=== PATIENT | male | born 1960 | race Caucasian/White ===

== ENCOUNTER 2016-12-07 20:31 | Emergency (ER) | payer MEDICARE, MEDICAID ==
[~2016-12-07] VITALS: Ht 188 cm; Wt 125.0 kg
[~2016-12-07 20:31] MED LIST: CARB200T4 PO; DIVA500T2 PO; FURO-92 PO; LEVO25TA4 PO; LISI-170 PO; POTA20TA91 PO; RANI-276 PO; SIMV40TA3 PO
[2016-12-07] MEDS ORDERED: ONDANSETRON 2MG/ML, 2ML IVPush ONE (21:30)
[2016-12-07] MEDS ORDERED: SODIUM CHLORIDE 0.9% 1,000ML IVBOLUS ONE (21:30)
[2016-12-07] MEDS ORDERED: LORazepam 2 MG/ML, 1ML IVPush ONE (21:30)
[2016-12-07] MEDS ORDERED: SODIUM CHLORIDE FLUSH 10ML SYR IVF ONE (21:30)
[2016-12-07] MEDS ORDERED: LORazepam 2 MG/ML, 1ML ONE (21:50)
[2016-12-07] MEDS ORDERED: ONDANSETRON 2MG/ML, 2ML ONE (21:50)
[2016-12-07 21:51] LABS: ASPARTATE AMINO TRANSFERASE 22 U/L (15-37); BLOOD UREA NITROGEN 21 mg/dL (7-18)
[2016-12-07] MEDS ORDERED: LISI-167 PO (22:24)
[2016-12-07] MEDS ORDERED: LEVO25TA4 PO (22:24)
[2016-12-07] MEDS ORDERED: HYDR-882 PO (22:24)
[2016-12-08 00:53] VITALS: BP 116/70
== END 2016-12-08 00:56 | disposition home or self-care (01) ==
LOC: ED 22:42
DX: G40.309 Generalized idiopathic epilepsy and epileptic syndromes, not intractable, without status epilepticus (principal); I11.0 Hypertensive heart disease with heart failure; I50.9 Heart failure, unspecified; E03.9 Hypothyroidism, unspecified; I25.2 Old myocardial infarction
CPT/HCPCS: 36415; 70450; 72125; 80053; 80164; 80307; 85025; 93005; 96361; 96374; 96375; 99285; J2060; J2405; J7030

== ENCOUNTER 2016-12-08 04:40 | Emergency (ER) | payer MEDICARE, MEDICAID ==
[~2016-12-08] VITALS: Ht 182.9 cm; Wt 112.0 kg
[~2016-12-08 04:40] MED LIST changes: +HYDR-882 PO; +LISI-167 PO
[2016-12-08] MEDS ORDERED: SODIUM CHLORIDE 0.9% 1,000 ML IV ONE (05:33)
[2016-12-08] MEDS ORDERED: SODIUM CHLORIDE FLUSH 10ML SYR IVF ONE (06:00)
[2016-12-08] MEDS ORDERED: SODIUM CHLORIDE 0.9% 1,000ML IVBOLUS ONE (06:00)
[2016-12-08 10:34] VITALS: BP 134/83
== END 2016-12-08 10:37 | disposition home or self-care (01) ==
LOC: ED 06:12
DX: G40.319 Generalized idiopathic epilepsy and epileptic syndromes, intractable, without status epilepticus (principal); M51.36 Other intervertebral disc degeneration, lumbar region
CPT/HCPCS: 36415; 72110; 80156; 93005; 96360; 99285; J7030

== ENCOUNTER 2017-02-10 10:21 | Emergency (ER) | payer MEDICARE, MEDICAID ==
[~2017-02-10] VITALS: Ht 188 cm; Wt 112.0 kg
[~2017-02-10 10:21] MED LIST changes: +LEVO25TA2 PO
[2017-02-10 10:22] VITALS: BP 159/85
== END 2017-02-10 10:59 | disposition home or self-care (01) ==
LOC: ED 10:44
DX: Z76.0 Encounter for issue of repeat prescription (principal); I11.0 Hypertensive heart disease with heart failure; I50.9 Heart failure, unspecified; I25.2 Old myocardial infarction; E03.9 Hypothyroidism, unspecified; E11.9 Type 2 diabetes mellitus without complications; G40.909 Epilepsy, unspecified, not intractable, without status epilepticus
CPT/HCPCS: 99283

== ENCOUNTER 2017-02-21 09:58 | Emergency (ER) | payer MEDICARE, MEDICAID ==
[~2017-02-21] VITALS: Ht 188 cm; Wt 112.8 kg
[2017-02-21 11:31] VITALS: BP 120/78
== END 2017-02-21 12:04 | disposition home or self-care (01) ==
LOC: ED 11:30
DX: R31.0 Gross hematuria (principal); I10 Essential (primary) hypertension; F17.200 Nicotine dependence, unspecified, uncomplicated; E03.9 Hypothyroidism, unspecified
CPT/HCPCS: 81001; 87086; 99284

== ENCOUNTER 2017-04-06 08:31 | Emergency (ER) | payer MEDICARE, MEDICAID ==
[~2017-04-06] VITALS: Ht 188 cm; Wt 109.5 kg
[2017-04-06] MEDS ORDERED: HYDR-3307 PO (08:41)
[2017-04-06] MEDS ORDERED: SODIUM CHLORIDE FLUSH 10ML SYR IVF ONE (09:30)
[2017-04-06 09:33] LABS: HEMATOCRIT 41.4 % (39.2-51.8); HEMOGLOBIN 14.1 g/dL (13.7-18.0); WHITE BLOOD COUNT 6.8 x10^3/uL (3.4-10)
[2017-04-06 11:21] LABS: ASPARTATE AMINO TRANSFERASE 14 U/L (15-37); BLOOD UREA NITROGEN 25 mg/dL (7-18)
[2017-04-06 11:23] LABS: IS PT STATUS REG ER OR PRE ER? YES
[2017-04-06 12:04] LABS: VALPROIC ACID 97.3 mcg/mL (50.0-100.0)
[2017-04-06 13:11] VITALS: BP 141/61
== END 2017-04-06 13:14 | disposition home or self-care (01) ==
LOC: ED 09:06
DX: R07.89 Other chest pain (principal); I11.0 Hypertensive heart disease with heart failure; I50.9 Heart failure, unspecified; G40.909 Epilepsy, unspecified, not intractable, without status epilepticus; I25.2 Old myocardial infarction; F17.210 Nicotine dependence, cigarettes, uncomplicated; Z90.89 Acquired absence of other organs; E03.9 Hypothyroidism, unspecified
CPT/HCPCS: 36415; 71010; 80053; 80156; 80164; 82962; 84484; 85025; 93005; 99285

== ENCOUNTER 2017-06-04 15:24 | Emergency (ER) | payer MEDICARE, MEDICAID ==
[~2017-06-04] VITALS: Ht 188 cm; Wt 106.0 kg
[~2017-06-04 15:24] MED LIST changes: +HYDR-3307 PO
[2017-06-04] MEDS ORDERED: ALBU18HF INH (15:44)
[2017-06-04] MEDS ORDERED: CARB200T PO ×2 (15:44)
[2017-06-04] MEDS ORDERED: CLON2TAB2 PO (15:44)
[2017-06-04] MEDS ORDERED: KETOROLAC 30 MG/1 ML ONE (15:57)
[2017-06-04] MEDS ORDERED: PROCHLORPERAZINE 5 MG/ML, 2ML ONE (15:58)
[2017-06-04] MEDS ORDERED: DIPHENHYDRAMINE 50 MG/ML, 1ML ONE (15:58)
[2017-06-04] MEDS ORDERED: PROCHLORPERAZINE 5 MG/ML, 2ML IVPush ONE (16:00)
[2017-06-04] MEDS ORDERED: KETOROLAC 30 MG/1 ML IVPush ONE (16:00)
[2017-06-04] MEDS ORDERED: DIPHENHYDRAMINE 50 MG/ML, 1ML IVPush ONE (16:00)
[2017-06-04] MEDS ORDERED: SODIUM CHLORIDE 0.9% 1,000ML IVBOLUS ONE (16:00)
[2017-06-04] MEDS ORDERED: SODIUM CHLORIDE FLUSH 10ML SYR IVF ONE (16:00)
[2017-06-04 16:10] VITALS: BP 120/70
== END 2017-06-04 17:31 | disposition home or self-care (01) ==
LOC: ED 16:46
DX: R51 Headache (principal); R11.2 Nausea with vomiting, unspecified; H53.149 Visual discomfort, unspecified; I10 Essential (primary) hypertension; E03.9 Hypothyroidism, unspecified
CPT/HCPCS: 96361; 96374; 96375; 99284; J0780; J1200; J1885; J7030

== ENCOUNTER 2017-06-21 19:27 | Inpatient (IN) | payer MEDICARE, MEDICAID ==
[~2017-06-21] VITALS: Ht 188 cm; Wt 111.7 kg
[~2017-06-21 19:27] MED LIST changes: +ALBU18HF INH; +CARB200T PO; +CLON2TAB2 PO
[2017-06-21 20:56] LABS: HEMATOCRIT 35.8 % (39.2-51.8); HEMOGLOBIN 12.2 g/dL (13.7-18.0); WHITE BLOOD COUNT 5.7 x10^3/uL (3.4-10)
[2017-06-21 21:09] LABS: ASPARTATE AMINO TRANSFERASE 9 U/L (15-37); BLOOD UREA NITROGEN 20 mg/dL (7-18)
[2017-06-21 21:14] LABS: IS PT STATUS REG ER OR PRE ER? YES
[2017-06-21] MEDS ORDERED: FENTANYL PF 100 MCG/2ML IV ONE (21:30)
[2017-06-21] MEDS ORDERED: FENTANYL PF 100 MCG/2ML ONE (21:32)
[2017-06-21] MEDS ORDERED: SODIUM CHLORIDE 0.9% 1,000 ML IV SCH (21:51)
[2017-06-21] MEDS ORDERED: ACETAMINOPHEN 325 MG TABLET PO PRN (22:00)
[2017-06-21] MEDS ORDERED: ZOLPIDEM 5MG TABLET PO PRN (22:00)
[2017-06-21] MEDS ORDERED: hydrALAzine 20 MG/ML, 1ML IVPush PRN (22:00)
[2017-06-21] MEDS: CARBAMAZEPINE 200 MG TABLET PO SCH ×2 (22:00→22:28)
[2017-06-21] MEDS ORDERED: ONDANSETRON 2MG/ML, 2ML IVPush PRN (22:00)
[2017-06-21] MEDS: DIVALPROEX 500 MG TABLET.DR PO SCH (22:27)
[2017-06-21] MEDS: LISINOPRIL MC SCH (23:00)
[2017-06-21 23:55] LABS: IS PT STATUS REG ER OR PRE ER? NO
[2017-06-22] MEDS: SIMVASTATIN 40 MG TABLET PO SCH ×2 (00:32→21:04)
[2017-06-22] MEDS: HYDROcodone/APAP 10/325 MG TABLET PO SCH ×5 (00:33→21:04)
[2017-06-22] MEDS: LISINOPRIL 5 MG TABLET PO SCH ×3 (00:33→21:03)
[2017-06-22 00:38] VITALS: BP 159/89
[2017-06-22 00:54] VITALS: BP 129/80
[2017-06-22] MEDS ORDERED: MAGNESIUM SULFATE PMX 2GM/50ML 50 ML IV ONE (05:30)
[2017-06-22] MEDS: LEVOTHYROXINE 25 MCG TABLET PO SCH (05:54)
[2017-06-22 06:24] LABS: IS PT STATUS REG ER OR PRE ER? NO
[2017-06-22] MEDS: LISINOPRIL MC SCH ×3 (07:00→23:00)
[2017-06-22 07:27] VITALS: BP 126/74
[2017-06-22] MEDS ORDERED: REGADENOSON 0.4 MG/5 ML SYRINGE ONE (08:28)
[2017-06-22] MEDS: FAMOTIDINE 20 MG TABLET PO SCH ×2 (09:00→21:04)
[2017-06-22] MEDS: DIVALPROEX 500 MG TABLET.DR PO SCH ×3 (09:00→21:03)
[2017-06-22] MEDS: CARBAMAZEPINE 200 MG TABLET PO SCH ×3 (09:00→21:03)
[2017-06-22] MEDS: ALBUTEROL HFA 90 MCG/SPRAY INH SCH ×2 (09:00→15:14)
[2017-06-22] MEDS ORDERED: LISINOPRIL 10 MG TABLET PO SCH (09:00)
[2017-06-22 12:53] VITALS: BP 124/80
[2017-06-22] MEDS: METOPROLOL SUCCINATE 25 MG TAB.ER.24H PO SCH (15:13)
[2017-06-22 19:26] VITALS: BP 106/70
[2017-06-22] MEDS: ALBUTEROL SULFATE 2.5 MG/3 ML NPPB SCH (21:00)
[2017-06-23 00:19] VITALS: BP 94/54
[2017-06-23] MEDS: LEVOTHYROXINE 25 MCG TABLET PO SCH (05:38)
[2017-06-23] MEDS: HYDROcodone/APAP 10/325 MG TABLET PO SCH ×2 (05:38→12:00)
[2017-06-23] MEDS: LISINOPRIL 5 MG TABLET PO SCH (05:40)
[2017-06-23] MEDS: METOPROLOL SUCCINATE 25 MG TAB.ER.24H PO SCH (05:41)
[2017-06-23 06:34] VITALS: BP 117/73
[2017-06-23] MEDS: LISINOPRIL MC SCH ×2 (07:00→13:35)
[2017-06-23] MEDS: DIVALPROEX 500 MG TABLET.DR PO SCH (07:58)
[2017-06-23] MEDS: FAMOTIDINE 20 MG TABLET PO SCH (07:59)
[2017-06-23] MEDS: CARBAMAZEPINE 200 MG TABLET PO SCH (07:59)
[2017-06-23] MEDS ORDERED: METO25TA35 PO (08:50)
[2017-06-23] MEDS ORDERED: LISI5TAB7 PO (08:50)
[2017-06-23] MEDS: ALBUTEROL SULFATE 2.5 MG/3 ML NPPB SCH (09:28)
[2017-06-23] MEDS ORDERED: METOPROLOL TARTRATE 25 MG TABLET PO SCH (18:00)
== END 2017-06-23 14:45 | disposition home or self-care (01) | DRG 311 ==
LOC: ED 19:58 → SUATTDRO 21:50 → EDIP 21:51 → 5SO 22:44
PROVIDERS: ADMIT Hospitalist; ATTEND Hospitalist
DX: I24.9 Acute ischemic heart disease, unspecified (principal); I11.0 Hypertensive heart disease with heart failure; I50.9 Heart failure, unspecified; I25.10 Atherosclerotic heart disease of native coronary artery without angina pectoris; R07.89 Other chest pain; E03.9 Hypothyroidism, unspecified; E66.9 Obesity, unspecified; E78.5 Hyperlipidemia, unspecified; J44.9 Chronic obstructive pulmonary disease, unspecified; K21.9 Gastro-esophageal reflux disease without esophagitis; G40.909 Epilepsy, unspecified, not intractable, without status epilepticus; G47.33 Obstructive sleep apnea (adult) (pediatric); Z96.651 Presence of right artificial knee joint; F17.210 Nicotine dependence, cigarettes, uncomplicated; Z68.31 Body mass index [BMI] 31.0-31.9, adult; I25.2 Old myocardial infarction; Z79.899 Other long term (current) drug therapy; Z82.3 Family history of stroke; Z82.49 Family history of ischemic heart disease and other diseases of the circulatory system; Z87.820 Personal history of traumatic brain injury; Z88.6 Allergy status to analgesic agent; Z88.5 Allergy status to narcotic agent; Z88.0 Allergy status to penicillin; Z88.8 Allergy status to other drugs, medicaments and biological substances; Z91.018 Allergy to other foods
CPT/HCPCS: 36415; 70450; 71010; 78452; 80053; 80061; 80164; 84484; 85025; 85610; 93005; 93017; 93306; 94640; 96374; J2785; J3010; J7613; A9502; C9898; J3475; J7030

== ENCOUNTER 2017-08-10 08:36 | Emergency (ER) | payer MEDICARE, MEDICAID ==
[~2017-08-10] VITALS: Ht 188 cm; Wt 102.0 kg
[~2017-08-10 08:36] MED LIST changes: +LISI5TAB7 PO; +METO25TA35 PO
[2017-08-10 09:25] VITALS: BP 154/76
[2017-08-10] MEDS ORDERED: HYDROcodone/APAP 5/325 TABLET PO ONE (10:00)
== END 2017-08-10 10:50 | disposition home or self-care (01) ==
LOC: ED 08:59
DX: G89.11 Acute pain due to trauma (principal); M25.511 Pain in right shoulder; M54.5 Low back pain; R51 Headache; W01.0XXA Fall on same level from slipping, tripping and stumbling without subsequent striking against object, initial encounter; Y93.89 Activity, other specified; Y92.231 Patient bathroom in hospital as the place of occurrence of the external cause; Y99.8 Other external cause status
CPT/HCPCS: 71045; 72110; 99284

== ENCOUNTER 2017-10-10 02:06 | Emergency (ER) | payer MEDICARE, MEDICAID ==
[~2017-10-10] VITALS: Ht 167.6 cm; Wt 102.9 kg
[2017-10-10 02:39] LABS: BASOPHILS # (AUTO) 0.02 x10^3/uL (0-0.1); BASOPHILS % (AUTO) 1 % (0-1); EOSINOPHILS # (AUTO) 0.15 x10^3/uL (0-0.4); EOSINOPHILS % (AUTO) 3 % (1-7); LYMPHOCYTES % (AUTO) 42 % (22-44); MD NO; MEAN CORPUSCULAR HEMOGLOBIN 33.1 pg (27.5-34.5); MEAN CORPUSCULAR VOLUME 97.4 fL (81-97); MEAN PLATELET VOLUME 6.6 fL (7.4-10.4); MONOCYTES # (AUTO) 0.52 x10^3/uL (0.2-0.8); MONOCYTES % (AUTO) 10 % (2-9); NEUTROPHILS % (AUTO) 45 % (42-75); PLATELET COUNT 193 x10^3/uL (130-400); RED BLOOD COUNT 4.17 x10^6/uL (4.38-5.82); RED CELL DISTRIBUTION WIDTH 13.8 % (9.4-14.8)
[2017-10-10 02:49] LABS: INTERNATIONAL NORMALIZED RATIO 0.98 (0.93-1.1); PROTHROMBIN TIME 10.2 Seconds (9.6-11.5)
[2017-10-10 02:51] LABS: ANION GAP 8 mmol/L (5-15); CALCIUM 8.7 mg/dL (8.5-10.1); CHLORIDE 106 mmol/L (98-107); CREATININE 0.81 mg/dL (0.7-1.3)
[2017-10-10 02:55] LABS: TROPONIN I < 0.015 ng/mL (0.000-0.045)
[2017-10-10 03:25] VITALS: BP 125/78
[2017-10-10] MEDS ORDERED: CARBAMAZEPINE 200 MG TABLET PO ONE (03:30)
[2017-10-10] MEDS ORDERED: DIVALPROEX 500 MG TABLET.DR PO ONE (03:30)
== END 2017-10-10 04:44 | disposition home or self-care (01) ==
LOC: ED 04:25
DX: R07.89 Other chest pain (principal); E03.9 Hypothyroidism, unspecified; E78.5 Hyperlipidemia, unspecified; G40.909 Epilepsy, unspecified, not intractable, without status epilepticus; I25.2 Old myocardial infarction
CPT/HCPCS: 36415; 71045; 80048; 80156; 80164; 82040; 84484; 85025; 85610; 85730; 93005; 99285

== ENCOUNTER 2017-10-17 13:12 | Inpatient (IN) | payer MEDICARE, MEDICAID ==
[~2017-10-17] VITALS: Ht 188 cm; Wt 107.2 kg
[2017-10-17] MEDS ORDERED: PLEASE ENTER HEIGHT AND WEIGHT MC SCH (13:42)
[2017-10-17] MEDS ORDERED: SIMV40TA3 PO (13:58)
[2017-10-17] MEDS ORDERED: SIMVASTATIN (14:00)
[2017-10-17] MEDS ORDERED: SODIUM CHLORIDE 0.9% 1,000ML IVBOLUS ONE ×2 (14:00→17:30)
[2017-10-17] MEDS ORDERED: RANITIDINE (14:00)
[2017-10-17] MEDS ORDERED: LEVO50TA5 PO (14:00)
[2017-10-17] MEDS ORDERED: ATEN50TA41 PO (14:00)
[2017-10-17 15:21] LABS: BASOPHILS # (AUTO) 0.03 x10^3/uL (0-0.1); BASOPHILS % (AUTO) 0 % (0-1); EOSINOPHILS # (AUTO) 0.11 x10^3/uL (0-0.4); EOSINOPHILS % (AUTO) 1 % (1-7); LYMPHOCYTES # (AUTO) 1.52 x10^3/uL (1-3.4); LYMPHOCYTES % (AUTO) 18 % (22-44); MD NO; MEAN CORPUSCULAR HEMOGLOBIN 33.4 pg (27.5-34.5); MEAN CORPUSCULAR HGB CONC 33.8 g/dL (33.2-36.2); MEAN CORPUSCULAR VOLUME 98.7 fL (81-97); MEAN PLATELET VOLUME 8.9 fL (7.4-10.4); MONOCYTES # (AUTO) 0.06 x10^3/uL (0.2-0.8); MONOCYTES % (AUTO) 1 % (2-9); NEUTROPHILS # (AUTO) 6.64 x10^3/uL (1.8-6.8); NEUTROPHILS % (AUTO) 79 % (42-75); PLATELET COUNT 130 x10^3/uL (130-400); RED BLOOD COUNT 3.87 x10^6/uL (4.38-5.82); RED CELL DISTRIBUTION WIDTH 13.6 % (9.4-14.8)
[2017-10-17 15:32] LABS: ALANINE AMINOTRANSFERASE 15 U/L (12-78); ANION GAP 7 mmol/L (5-15); CALCIUM 8.3 mg/dL (8.5-10.1); CHLORIDE 109 mmol/L (98-107)
[2017-10-17 15:35] LABS: ALKALINE PHOSPHATASE 43 U/L (45-117); BILIRUBIN,TOTAL 0.3 mg/dL (0.2-1.0); CREATININE 0.93 mg/dL (0.7-1.3); TROPONIN I < 0.015 ng/mL (0.000-0.045)
[2017-10-17 15:42] LABS: ACETAMINOPHEN < 2 mcg/mL (10-30)
[2017-10-17] MEDS ORDERED: LIDOCAINE-MPF 1%, 5ML ONE (15:42)
[2017-10-17] MEDS ORDERED: DIPH,PERTUSS(ACELL),TET VAC/PF 0.5 ML IM-VACC ONE ×2 (16:00→16:51)
[2017-10-17] MEDS ORDERED: ONDANSETRON 2MG/ML, 2ML IVPush PRN (17:30)
[2017-10-17] MEDS ORDERED: SODIUM CHLORIDE 0.9% 1,000 ML IV SCH (17:43)
[2017-10-17] MEDS ORDERED: hydrALAzine 20 MG/ML, 1ML IVPush PRN (18:00)
[2017-10-17] MEDS ORDERED: HYDROcodone/APAP 5/325 TABLET PO PRN (18:00)
[2017-10-17] MEDS ORDERED: SODIUM CHLORIDE 0.9% 1,000 ML IV ONE (18:00)
[2017-10-17] MEDS ORDERED: ONDANSETRON ODT 4 MG PO PRN (18:00)
[2017-10-17] MEDS ORDERED: BACITRACIN ZINC OINT 500U/GM, 0.9 GM ONE (18:14)
[2017-10-17 20:07] VITALS: BP 113/81
[2017-10-17] MEDS ORDERED: CARBAMAZEPINE 200 MG TABLET PO SCH (21:00)
[2017-10-17] MEDS: NICOTINE 7 MG/24 HR PATCH.TD24 TD SCH (22:06)
[2017-10-17] MEDS: CARBAMAZEPINE 200 MG TABLET PO SCH (23:03)
[2017-10-18 01:25] VITALS: BP 90/57
[2017-10-18 04:55] LABS: CULTURE INDICATED? YES; MICROSCOPIC INDICATED
[2017-10-18 05:24] LABS: AMPHETAMINE SCREEN, URINE Positive (Negative); BARBITURATE SCREEN, URINE Negative (Negative); BENZODIAZEPINE SCREEN, URINE Negative (Negative); CANNABINOID SCREEN, URINE Positive (Negative); COCAINE SCREEN, URINE Negative (Negative); METHADONE SCREEN, URINE Negative (Negative)
[2017-10-18 05:25] LABS: OPIATE SCREEN, URINE Negative (Negative)
[2017-10-18 05:35] LABS: % IRON SATURATION 27 % (20-55); ALANINE AMINOTRANSFERASE 12 U/L (12-78); ALBUMIN 2.4 g/dL (3.4-5.0); ANION GAP 5 mmol/L (5-15); CALCIUM 8.1 mg/dL (8.5-10.1); CHLORIDE 113 mmol/L (98-107); CREATININE 0.78 mg/dL (0.7-1.3); IRON LEVEL 60 mcg/dL (65-175); TOTAL IRON BINDING CAPACITY 221 mcg/dL (250-450)
[2017-10-18 05:38] LABS: ALKALINE PHOSPHATASE 35 U/L (45-117); BILIRUBIN,TOTAL 0.2 mg/dL (0.2-1.0); MEAN CORPUSCULAR HGB CONC 33.9 g/dL (33.2-36.2); MEAN CORPUSCULAR VOLUME 97.4 fL (81-97); RED BLOOD COUNT 3.36 x10^6/uL (4.38-5.82); RED CELL DISTRIBUTION WIDTH 13.6 % (9.4-14.8); TOTAL PROTEIN 5.7 g/dL (6.4-8.2)
[2017-10-18 06:01] LABS: BASOPHILS # (AUTO) 0.02 x10^3/uL (0-0.1); BASOPHILS % (AUTO) 0 % (0-1); EOSINOPHILS # (AUTO) 0.14 x10^3/uL (0-0.4); EOSINOPHILS % (AUTO) 3 % (1-7); LYMPHOCYTES # (AUTO) 1.94 x10^3/uL (1-3.4); LYMPHOCYTES % (AUTO) 38 % (22-44); MD SCAN; MEAN PLATELET VOLUME 9.2 fL (7.4-10.4); MONOCYTES # (AUTO) 0.28 x10^3/uL (0.2-0.8); MONOCYTES % (AUTO) 5 % (2-9); NEUTROPHILS # (AUTO) 2.73 x10^3/uL (1.8-6.8); NEUTROPHILS % (AUTO) 53 % (42-75); PLATELET COUNT 89 x10^3/uL (130-400)
[2017-10-18 07:14] VITALS: BP 107/64
[2017-10-18 08:15] VITALS: BP 100/63
[2017-10-18] MEDS: LEVOTHYROXINE 50 MCG TABLET PO SCH (08:38)
[2017-10-18] MEDS: ACETAMINOPHEN 325 MG TABLET PO PRN (08:39)
[2017-10-18 12:27] VITALS: BP 106/66
[2017-10-18] MEDS ORDERED: CEFTRIAXONE PMX 2GM/50ML 50 ML IV SCH (12:30)
[2017-10-18 12:55] VITALS: BP 125/67
[2017-10-18] MEDS: CEFTRIAXONE 2 GM in DEXTROSE 5% 100 ML IV SCH (14:07)
[2017-10-18] MEDS: NICOTINE 7 MG/24 HR PATCH.TD24 TD SCH (17:58)
[2017-10-18] MEDS ORDERED: SODIUM CHLORIDE 0.9% 1,000 ML IV SCH (18:00)
[2017-10-18] MEDS: SODIUM CHLORIDE 0.9% 1,000 ML IV SCH ×2 (18:03→23:40)
[2017-10-18 18:27] VITALS: BP 113/70
[2017-10-18] MEDS: CARBAMAZEPINE 200 MG TABLET PO SCH (20:20)
[2017-10-18] MEDS ORDERED: DIVALPROEX 500 MG TABLET.DR PO SCH (21:00)
[2017-10-19 00:44] VITALS: BP 94/60
[2017-10-19 05:14] LABS: MEAN CORPUSCULAR HEMOGLOBIN 33.4 pg (27.5-34.5); MEAN CORPUSCULAR HGB CONC 34.2 g/dL (33.2-36.2); MEAN CORPUSCULAR VOLUME 97.6 fL (81-97); RED BLOOD COUNT 3.13 x10^6/uL (4.38-5.82); RED CELL DISTRIBUTION WIDTH 13.9 % (9.4-14.8)
[2017-10-19 05:18] LABS: ANION GAP 5 mmol/L (5-15); CHLORIDE 110 mmol/L (98-107)
[2017-10-19 05:22] LABS: CREATININE 0.62 mg/dL (0.7-1.3)
[2017-10-19 06:42] LABS: BASOPHILS # (AUTO) 0.06 x10^3/uL (0-0.1); BASOPHILS % (AUTO) 1 % (0-1); EOSINOPHILS # (AUTO) 0.17 x10^3/uL (0-0.4); EOSINOPHILS % (AUTO) 3 % (1-7); LYMPHOCYTES # (AUTO) 1.62 x10^3/uL (1-3.4); LYMPHOCYTES % (AUTO) 33 % (22-44); MD SCAN; MEAN PLATELET VOLUME 9.5 fL (7.4-10.4); MONOCYTES # (AUTO) 0.32 x10^3/uL (0.2-0.8); MONOCYTES % (AUTO) 6 % (2-9); NEUTROPHILS # (AUTO) 2.81 x10^3/uL (1.8-6.8); NEUTROPHILS % (AUTO) 56 % (42-75); PLATELET COUNT 72 x10^3/uL (130-400)
[2017-10-19 07:40] VITALS: BP 105/67
[2017-10-19] MEDS: LEVOTHYROXINE 50 MCG TABLET PO SCH (08:55)
[2017-10-19] MEDS: SODIUM CHLORIDE 0.9% 1,000 ML IV SCH ×2 (09:49→21:57)
[2017-10-19] MEDS: DIVALPROEX 250 MG TABLET.DR PO SCH ×2 (10:44→21:57)
[2017-10-19] MEDS: CEFTRIAXONE 2 GM in DEXTROSE 5% 100 ML IV SCH (11:49)
[2017-10-19 13:03] VITALS: BP 118/78
[2017-10-19 15:18] VITALS: BP_SYST 104; BP_SYST 114; BP_SYST 124; BP_DIAS 64; BP_DIAS 67; BP_DIAS 76
[2017-10-19] MEDS: NICOTINE 7 MG/24 HR PATCH.TD24 TD SCH (16:56)
[2017-10-19 21:19] VITALS: BP 113/72
[2017-10-19] MEDS: CARBAMAZEPINE 200 MG TABLET PO SCH (21:57)
[2017-10-20 01:21] VITALS: BP 100/68
[2017-10-20] MEDS: LEVOTHYROXINE 50 MCG TABLET PO SCH (04:45)
[2017-10-20 06:20] VITALS: BP 103/67
[2017-10-20 06:25] VITALS: BP 106/70
[2017-10-20 06:30] VITALS: BP 122/81
[2017-10-20] MEDS: DIVALPROEX 250 MG TABLET.DR PO SCH (07:43)
[2017-10-20] MEDS: SODIUM CHLORIDE 0.9% 1,000 ML IV SCH (07:43)
[2017-10-20] MEDS: CEFTRIAXONE 2 GM in DEXTROSE 5% 100 ML IV SCH (12:15)
[2017-10-20 13:48] VITALS: BP 102/67
[2017-10-20] MEDS ORDERED: MAGNESIUM SULFATE PMX 4GM/100M 100 ML IV ONE (15:00)
[2017-10-20] MEDS ORDERED: POTASSIUM PHOSPHATE 44 MEQ in SODIUM CHLORIDE 0.9% 500 ML IV ONE (15:00)
[2017-10-20] MEDS: NICOTINE 7 MG/24 HR PATCH.TD24 TD SCH (18:00)
[2017-10-20 19:35] VITALS: BP 98/65
[2017-10-20] MEDS: DIVALPROEX 500 MG TABLET.DR PO SCH (20:29)
[2017-10-20] MEDS: CARBAMAZEPINE 200 MG TABLET PO SCH (20:29)
[2017-10-21 00:09] VITALS: BP 101/65
[2017-10-21] MEDS: SODIUM CHLORIDE 0.9% 1,000 ML IV SCH ×3 (04:00→22:35)
[2017-10-21] MEDS: LEVOTHYROXINE 50 MCG TABLET PO SCH (04:01)
[2017-10-21 05:12] LABS: ANION GAP 6 mmol/L (5-15); CALCIUM 8.1 mg/dL (8.5-10.1); CHLORIDE 108 mmol/L (98-107); CREATININE 0.58 mg/dL (0.7-1.3)
[2017-10-21] MEDS: ACETAMINOPHEN 325 MG TABLET PO PRN ×2 (05:24→17:27)
[2017-10-21 07:25] VITALS: BP 94/61
[2017-10-21] MEDS: DIVALPROEX 500 MG TABLET.DR PO SCH (08:13)
[2017-10-21] MEDS: CEFTRIAXONE 2 GM in DEXTROSE 5% 100 ML IV SCH (12:32)
[2017-10-21] MEDS ORDERED: CEFTRIAXONE 2 GM in DEXTROSE 5% 50 ML IV SCH (13:00)
[2017-10-21 14:10] VITALS: BP 96/57
[2017-10-21] MEDS: NICOTINE 7 MG/24 HR PATCH.TD24 TD SCH (17:06)
[2017-10-21 19:28] VITALS: BP 108/65
[2017-10-21] MEDS: CARBAMAZEPINE 200 MG TABLET PO SCH (19:37)
[2017-10-21] MEDS: DIVALPROEX 250 MG TABLET.DR PO SCH (19:38)
[2017-10-22 03:59] VITALS: BP 104/67
[2017-10-22] MEDS: LEVOTHYROXINE 50 MCG TABLET PO SCH (05:24)
[2017-10-22 06:45] VITALS: BP_SYST 102; BP_SYST 109; BP_DIAS 67; BP_DIAS 79
[2017-10-22 06:46] VITALS: BP 117/78
[2017-10-22 06:47] VITALS: BP 129/81
[2017-10-22] MEDS: DIVALPROEX 250 MG TABLET.DR PO SCH (08:13)
[2017-10-22] MEDS: SODIUM CHLORIDE 0.9% 1,000 ML IV SCH (08:13)
[2017-10-22] MEDS ORDERED: DIVA250T6 PO (09:12)
[2017-10-22] MEDS ORDERED: DIVA500T2 PO (09:12)
[2017-10-22] MEDS ORDERED: NICO-485 TD (09:12)
== END 2017-10-22 12:56 | disposition home or self-care (01) | DRG 308 ==
LOC: ED 15:11 → EDIP 17:02 → 5SO 20:11 → DCLOUNGE 10-22 12:45
PROVIDERS: ADMIT Hospitalist; ATTEND Internal Medicine
PROC: 0HQFXZZ Repair Right Hand Skin, External Approach (ICD-10-PCS; principal; 2017-10-17)
DX: R00.1 Bradycardia, unspecified (principal); E43 Unspecified severe protein-calorie malnutrition; G93.41 Metabolic encephalopathy; I11.0 Hypertensive heart disease with heart failure; I50.32 Chronic diastolic (congestive) heart failure; N39.0 Urinary tract infection, site not specified; I95.1 Orthostatic hypotension; W05.0XXA Fall from non-moving wheelchair, initial encounter; E83.42 Hypomagnesemia; Z68.28 Body mass index [BMI] 28.0-28.9, adult; D50.9 Iron deficiency anemia, unspecified; E03.9 Hypothyroidism, unspecified; E78.5 Hyperlipidemia, unspecified; G40.909 Epilepsy, unspecified, not intractable, without status epilepticus; S00.81XA Abrasion of other part of head, initial encounter; S50.811A Abrasion of right forearm, initial encounter; S61.011A Laceration without foreign body of right thumb without damage to nail, initial encounter; S51.811A Laceration without foreign body of right forearm, initial encounter; T42.6X5A Adverse effect of other antiepileptic and sedative-hypnotic drugs, initial encounter; Z87.820 Personal history of traumatic brain injury; Z87.891 Personal history of nicotine dependence; Z68.30 Body mass index [BMI] 30.0-30.9, adult
CPT/HCPCS: 36415; 70450; 71045; 80048; 80053; 80164; 80307; 80329; 81001; 83540; 83550; 83735; 84100; 84443; 84484; 85025; 87040; 87086; 90471; 90715; 93005; 93880; 96360; 96361; Q0162; G0480; J3475; J7030; J7040

== ENCOUNTER 2017-10-28 04:12 | Emergency (ER) | payer MEDICARE, MEDICAID ==
[~2017-10-28] VITALS: Ht 188 cm; Wt 89.1 kg
[~2017-10-28 04:12] MED LIST changes: +ATEN50TA41 PO; +DIVA250T6 PO; +LEVO50TA5 PO; +NICO-485 TD; +RANITIDINE; +SIMVASTATIN
[2017-10-28 05:14] LABS: BASOPHILS # (AUTO) 0.03 x10^3/uL (0-0.1); BASOPHILS % (AUTO) 1 % (0-1); EOSINOPHILS # (AUTO) 0.16 x10^3/uL (0-0.4); EOSINOPHILS % (AUTO) 4 % (1-7); LYMPHOCYTES # (AUTO) 1.83 x10^3/uL (1-3.4); LYMPHOCYTES % (AUTO) 40 % (22-44); MD NO; MEAN CORPUSCULAR HEMOGLOBIN 32.9 pg (27.5-34.5); MEAN CORPUSCULAR HGB CONC 33.6 g/dL (33.2-36.2); MEAN CORPUSCULAR VOLUME 98.1 fL (81-97); MEAN PLATELET VOLUME 8.9 fL (7.4-10.4); MONOCYTES # (AUTO) 0.37 x10^3/uL (0.2-0.8); MONOCYTES % (AUTO) 8 % (2-9); NEUTROPHILS # (AUTO) 2.16 x10^3/uL (1.8-6.8); NEUTROPHILS % (AUTO) 48 % (42-75); PLATELET COUNT 120 x10^3/uL (130-400); RED BLOOD COUNT 3.34 x10^6/uL (4.38-5.82); RED CELL DISTRIBUTION WIDTH 14.6 % (9.4-14.8)
[2017-10-28 05:24] LABS: ALANINE AMINOTRANSFERASE 17 U/L (12-78); ALBUMIN 2.8 g/dL (3.4-5.0); ANION GAP 8 mmol/L (5-15); CALCIUM 8.5 mg/dL (8.5-10.1); CHLORIDE 113 mmol/L (98-107); CREATININE 0.62 mg/dL (0.7-1.3)
[2017-10-28 05:26] LABS: ALKALINE PHOSPHATASE 42 U/L (45-117); BILIRUBIN,TOTAL 0.3 mg/dL (0.2-1.0); TOTAL PROTEIN 6.7 g/dL (6.4-8.2)
[2017-10-28] MEDS ORDERED: SODIUM CHLORIDE 0.9% 1,000ML IVBOLUS ONE (05:30)
[2017-10-28 06:31] LABS: MICROSCOPIC INDICATED
[2017-10-28 06:32] LABS: CULTURE INDICATED? YES
[2017-10-28 06:36] VITALS: BP 133/77
== END 2017-10-28 07:16 | disposition home or self-care (01) ==
LOC: ED 04:17
DX: G40.909 Epilepsy, unspecified, not intractable, without status epilepticus (principal); N30.00 Acute cystitis without hematuria; E03.9 Hypothyroidism, unspecified; E78.5 Hyperlipidemia, unspecified; I48.91 Unspecified atrial fibrillation
CPT/HCPCS: 36415; 74176; 80053; 80164; 80307; 81001; 85025; 87086; 93005; 99285

== ENCOUNTER 2018-06-02 12:17 | Emergency (ER) | payer MEDICARE, MEDICAID ==
[~2018-06-02] VITALS: Ht 188 cm; Wt 105.0 kg
[~2018-06-02 12:17] MED LIST changes: -CLON2TAB2 PO; +CLON2TAB9 PO; +DIVA-59 PO; -DIVA250T6 PO; +HYDR-3653 PO; -HYDR-882 PO
[2018-06-02] MEDS ORDERED: CARBAMAZEPINE 200 MG TABLET PO ONE (13:00)
[2018-06-02] MEDS ORDERED: CARBAMAZEPINE 200 MG TABLET ONE (13:10)
[2018-06-02 14:09] VITALS: BP 165/86
== END 2018-06-02 14:39 | disposition home or self-care (01) ==
LOC: ED 14:30
DX: G40.319 Generalized idiopathic epilepsy and epileptic syndromes, intractable, without status epilepticus (principal); Z76.0 Encounter for issue of repeat prescription; E78.5 Hyperlipidemia, unspecified; I11.9 Hypertensive heart disease without heart failure; I50.9 Heart failure, unspecified; E03.9 Hypothyroidism, unspecified; Z90.89 Acquired absence of other organs
CPT/HCPCS: 99283

== ENCOUNTER 2018-07-24 11:34 | Emergency (ER) | payer OTHER, MEDICAID ==
[~2018-07-24] VITALS: Ht 182.9 cm; Wt 97.5 kg
[~2018-07-24 11:34] MED LIST changes: -RANI-276 PO; +RANI-448 PO
--- NOTE | 2018-07-24 11:47 | NUR ---
PT. ARRIVES BY [facility] WITH C/O SEIZURE ACTIVITY WHILE AT HIS [facility] TODAY. UPON ARRIVAL PT. IS A & O X 4. PUPILS ARE DANIELA. PT. HAS THE CP MONITOR IN PLACE. SEIZURE PADS ARE IN PLACE ON THE GURNEY. PT.'S HOB IS ELEVATED GREATER THAN 30 DEGREES. PT.'S SIDERAILS REMAIN UP X 2. PT.'S RESP. ARE EUPNEIC. PT. STATES HE HAS NOT TAKEN HIS SEIZURE MEDICATION FOR 2 DAYS SECONDARY TO RUNNING OUT OF THEM. PT. IS INCONTINENT OF URINE. PT. HAS HAD MULTIPLE BACK AND SPINE INJURIES. PT. IS UNABLE TO AMBULATE. REPORT WAS GIVEN TO CLAIR Bowens RN.
[2018-07-24] MEDS ORDERED: OXCA600T10 PO (11:55)
[2018-07-24] MEDS ORDERED: ALBU18HF INH (11:55)
[2018-07-24] MEDS ORDERED: AZEL6DRO2 EACHEYE (11:55)
[2018-07-24] MEDS ORDERED: SIMV10TA3 PO (11:55)
[2018-07-24] MEDS ORDERED: BUDE10.2 INH (11:55)
[2018-07-24] MEDS ORDERED: FLUT16SP NAS (11:55)
[2018-07-24] MEDS ORDERED: QUET25TA PO (11:55)
[2018-07-24] MEDS ORDERED: LEVO25TA4 PO (11:55)
[2018-07-24] MEDS ORDERED: ESCI10TA PO (11:55)
[2018-07-24] MEDS ORDERED: HYDR25CA94 PO (11:55)
--- NOTE | 2018-07-24 12:01 | NUR ---
lunch rn: med reccompleted, pt on all monitors. piv to be established.
[2018-07-24] MEDS ORDERED: LORazepam 1MG TABLET ONE (12:19)
--- NOTE | 2018-07-24 12:28 | NUR ---
Provided pt medication per EMAR. Sent yellow slip to pharmacy for other meds on EMAR. Pt connected to all monitors. NADN. All seizure precautions in place. No needs requested at this time. Pt speaking in complete sentences. Pt able to swallow saliva and drink water with out complications.
[2018-07-24] MEDS ORDERED: OXCARBAZEPINE 150 MG TABLET PO ONE (12:30)
[2018-07-24] MEDS ORDERED: LORazepam 1MG TABLET PO ONE (12:30)
--- NOTE | 2018-07-24 12:49 | NUR ---
Pt states, "my neck is hurting really bad, can the doctor give me something?"
--- NOTE | 2018-07-24 13:01 | NUR ---
Pt repositioned. Pt states, "pain is at an 8 right now."
--- NOTE | 2018-07-24 13:35 | NUR ---
Patient given discharge instructions and they have confirmed that they understand the instructions. Patient moves self from gurney to personal wheelchair. Pt wheeled self to discharge desk. Pt left with all personal belongings, discharge paperwork, and prescription.
[2018-07-24 13:36] VITALS: BP 136/75
== END 2018-07-24 13:38 | disposition home or self-care (01) ==
LOC: ED 13:00
DX: G40.419 Other generalized epilepsy and epileptic syndromes, intractable, without status epilepticus (principal)
CPT/HCPCS: 99283

== ENCOUNTER 2018-12-22 20:59 | Observation (INO) | payer OTHER, MEDICAID ==
[~2018-12-22] VITALS: Ht 182.9 cm; Wt 101.4 kg
[~2018-12-22 20:59] MED LIST changes: +AZEL6DRO2 EACHEYE; +BUDE10.2 INH; +ESCI10TA PO; +FLUT16SP24 NAS; +HYDR25CA94 PO; +OXCA600T10 PO; +QUET25TA7 PO; +SIMV10TA3 PO
--- NOTE | 2018-12-22 21:11 | NUR ---
CODE NEURO PREALERT. ARRIVAL TIME 2057. PER EMS, L SIDED WEAKNESS ONSET 2029. FSBS IN FIELD, 101. PT EVALUATED BY ERP UPON ARRIVAL AND TAKEN DIRECTLY TO CT.
[2018-12-22 21:31] LABS: BASOPHILS # (AUTO) 0.03 x10^3/uL (0-0.1); BASOPHILS % (AUTO) 1 % (0-1); EOSINOPHILS # (AUTO) 0.33 x10^3/uL (0-0.4); EOSINOPHILS % (AUTO) 5 % (1-7); LYMPHOCYTES # (AUTO) 1.38 x10^3/uL (1-3.4); LYMPHOCYTES % (AUTO) 20 % (22-44); MD NO; MEAN CORPUSCULAR HEMOGLOBIN 31.1 pg (27.5-34.5); MEAN CORPUSCULAR HGB CONC 32.9 g/dL (33.2-36.2); MEAN CORPUSCULAR VOLUME 94.5 fL (81-97); MEAN PLATELET VOLUME 7.8 fL (7.4-10.4); MONOCYTES # (AUTO) 0.68 x10^3/uL (0.2-0.8); MONOCYTES % (AUTO) 10 % (2-9); NEUTROPHILS # (AUTO) 4.57 x10^3/uL (1.8-6.8); NEUTROPHILS % (AUTO) 65 % (42-75); PLATELET COUNT 185 x10^3/uL (130-400); RED BLOOD COUNT 4.14 x10^6/uL (4.38-5.82); RED CELL DISTRIBUTION WIDTH 12.5 % (9.4-14.8)
--- NOTE | 2018-12-22 21:34 | NUR ---
UPON ARRIVAL, PT UNABLE TO MOVE LUE OR LLE. PT ANSWERING QUESTION APPROPRIATELY, SPEECH CLEAR AND MANTAINING AIRWAY. 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 PT USING L HAND TO TYPE ON CELL PHONE AT THIS TIME AND IS ABLE TO HOLD L ARM UP AGAINST GRAVITY FOR ADJUSTMENT OF BP CUFF. COMPUTER IN PLACE FOR NEURO ASSESSMENT. PT UPDATED TO POC (NEURO ASSESSMENT/RESULTS/RECHECK/DISPO) AND DEMONSTRATES UNDERSTANDING.
--- NOTE | 2018-12-22 21:39 | NUR ---
NEURO CONSULT INITIATED.
[2018-12-22 21:42] LABS: INTERNATIONAL NORMALIZED RATIO 1.12 (0.93-1.1); PROTHROMBIN TIME 11.7 Seconds (9.6-11.5)
[2018-12-22 21:44] LABS: ALBUMIN 2.7 g/dL (3.4-5.0); ANION GAP 3 mmol/L (5-15); CALCIUM 8.2 mg/dL (8.5-10.1); CHLORIDE 105 mmol/L (98-107)
--- NOTE | 2018-12-22 21:47 | NUR ---
DOA COLLECTED AND WALKED TO LAB
[2018-12-22 21:50] LABS: ALANINE AMINOTRANSFERASE 20 U/L (12-78); ALKALINE PHOSPHATASE 73 U/L (45-117); BILIRUBIN,TOTAL 0.2 mg/dL (0.2-1.0); CREATININE 0.78 mg/dL (0.7-1.3); TOTAL PROTEIN 6.2 g/dL (6.4-8.2); TROPONIN I < 0.015 ng/mL (0.000-0.045)
[2018-12-22] MEDS ORDERED: OMNIPAQUE 350 MG/ML, 100ML BOTTLE ONE (22:00)
[2018-12-22 22:08] LABS: AMPHETAMINE SCREEN, URINE Positive (Negative); BARBITURATE SCREEN, URINE Negative (Negative); BENZODIAZEPINE SCREEN, URINE Negative (Negative); CANNABINOID SCREEN, URINE Positive (Negative); COCAINE SCREEN, URINE Negative (Negative); METHADONE SCREEN, URINE Negative (Negative); OPIATE SCREEN, URINE Negative (Negative)
--- NOTE | 2018-12-22 22:33 | NUR ---
PT RESTING COMFORTABLY IN GURNEY, EVEN/REGULAR RESPIRATIONS. PT EASILY ARROUSABLE TO VOICE AND ABLE TO ANSWER QUESTIONS REGARDING HOME MEDICATIONS.
--- NOTE | 2018-12-22 22:40 | NUR ---
REPORT CALLED TO TERENCE LANDAVERDE
[2018-12-22 23:10] VITALS: BP 128/79
[2018-12-23] MEDS ORDERED: ONDANSETRON 2MG/ML, 2ML IVPush PRN (00:30)
[2018-12-23] MEDS ORDERED: POLYETHYLENE GLYCOL 17 GM PACKET PO PRN (00:30)
[2018-12-23] MEDS ORDERED: ACETAMINOPHEN 325 MG TABLET PO PRN (00:30)
[2018-12-23] MEDS ORDERED: HYDROXYZINE PAMOATE 25MG CAP PO PRN (00:30)
[2018-12-23] MEDS ORDERED: BISACODYL 10 MG SUPP PR PRN (00:30)
[2018-12-23] MEDS ORDERED: LABETALOL 5MG/ML, 20ML IVPush PRN (00:30)
[2018-12-23 01:03] VITALS: BP 131/77
[2018-12-23 01:14] LABS: HEMOGLOBIN A1C 5.5 % (4.2-6.3)
[2018-12-23] MEDS: ATORVASTATIN 80 MG TABLET PO SCH ×2 (01:44→20:45)
[2018-12-23] MEDS: ENOXAPARIN 40 MG/0.4 ML SQ SCH (01:44)
[2018-12-23] MEDS: QUETIAPINE 100MG TABLET PO SCH ×2 (01:45→20:45)
[2018-12-23 05:09] LABS: CHOL/HDL RATIO 2.4; LDL/HDL RATIO 1.2 (0.5-3.0)
[2018-12-23 07:32] VITALS: BP 114/76
[2018-12-23] MEDS: CETIRIZINE 10 MG TABLET PO SCH (08:39)
[2018-12-23] MEDS: FLUTICASONE NASAL SPRAY 16GM NAS SCH (08:39)
[2018-12-23] MEDS: LEVOTHYROXINE 100 MCG TABLET PO SCH (08:39)
[2018-12-23] MEDS: OXCARBAZEPINE 300MG TABLET PO SCH ×2 (08:39→20:45)
[2018-12-23] MEDS: ESCITALOPRAM 10MG TABLET PO SCH (08:39)
[2018-12-23] MEDS: SENNA/DOCUSATE TABLET PO SCH (08:39)
[2018-12-23] MEDS: ALBUTEROL SULFATE 2.5 MG/3 ML NPPB SCH ×3 (09:00→19:48)
[2018-12-23] MEDS: BUDESONIDE 0.5 MG/2 ML INHA NPPB SCH ×2 (09:00→19:48)
[2018-12-23 13:10] VITALS: BP 112/72
[2018-12-23 19:28] VITALS: BP 118/72
[2018-12-24] MEDS: ENOXAPARIN 40 MG/0.4 ML SQ SCH (00:45)
[2018-12-24 00:54] VITALS: BP 107/74
[2018-12-24] MEDS: ALBUTEROL SULFATE 2.5 MG/3 ML NPPB SCH ×2 (01:44→07:18)
[2018-12-24] MEDS: BUDESONIDE 0.5 MG/2 ML INHA NPPB SCH (07:18)
[2018-12-24 07:22] VITALS: BP 111/74
[2018-12-24] MEDS: FLUTICASONE NASAL SPRAY 16GM NAS SCH (09:56)
[2018-12-24] MEDS: CETIRIZINE 10 MG TABLET PO SCH (09:57)
[2018-12-24] MEDS: ESCITALOPRAM 10MG TABLET PO SCH (09:57)
[2018-12-24] MEDS: LEVOTHYROXINE 100 MCG TABLET PO SCH (09:57)
[2018-12-24] MEDS: OXCARBAZEPINE 300MG TABLET PO SCH (09:58)
[2018-12-24] MEDS: SENNA/DOCUSATE TABLET PO SCH (09:58)
[2018-12-24] MEDS ORDERED: CLOPIDOGREL 75 MG TABLET PO SCH (11:00)
[2018-12-24 12:51] VITALS: BP 126/72
[2018-12-24] MEDS ORDERED: CLOP75TA PO (13:31)
[2018-12-24] MEDS ORDERED: ALBUTEROL SULFATE 2.5 MG/3 ML NPPB SCH (21:00)
== END 2018-12-24 15:25 | disposition home or self-care (01) ==
LOC: ED 21:04 → INTOOBSV 22:22 → EDIP 22:22 → 4WST 23:04 → DCLOUNGE 12-24 15:10
PROVIDERS: ADMIT Family Medicine; ATTEND Family Medicine
DX: G95.9 Disease of spinal cord, unspecified (principal); G40.909 Epilepsy, unspecified, not intractable, without status epilepticus; E03.9 Hypothyroidism, unspecified; E78.5 Hyperlipidemia, unspecified; D64.9 Anemia, unspecified; I11.0 Hypertensive heart disease with heart failure; I50.32 Chronic diastolic (congestive) heart failure; J45.909 Unspecified asthma, uncomplicated; M19.90 Unspecified osteoarthritis, unspecified site; G92 Toxic encephalopathy; G83.84 Todd's paralysis (postepileptic); G81.94 Hemiplegia, unspecified affecting left nondominant side; F17.200 Nicotine dependence, unspecified, uncomplicated; Z88.6 Allergy status to analgesic agent; W06.XXXA Fall from bed, initial encounter; Z79.01 Long term (current) use of anticoagulants; Z79.899 Other long term (current) drug therapy
CPT/HCPCS: 0399T; 36415; 70450; 70496; 70498; 70551; 71045; 80047; 80053; 80061; 80164; 80307; 83036; 84443; 84484; 85025; 85610; 85730; 92523; 93005; 93306; 94640; 96372; 97161; 97166; 99291; G0378; J1650; J7613; J7626; Q9967

== ENCOUNTER 2018-12-30 05:17 | Inpatient (IN) | payer OTHER, MEDICAID ==
[~2018-12-30] VITALS: Ht 188 cm; Wt 106.2 kg
[~2018-12-30 05:17] MED LIST changes: +CLOP75TA PO
[2018-12-30] MEDS: PANTOPRAZOLE 80 MG in SODIUM CHLORIDE 0.9% 100 ML IV SCH ×2 (05:23→10:49)
[2018-12-30] MEDS ORDERED: PANTOPRAZOLE 80 MG in SODIUM CHLORIDE 0.9% 50 ML IVPB ONE (05:23)
[2018-12-30] MEDS ORDERED: SODIUM CHLORIDE 0.9% 1,000ML IVBOLUS ONE ×2 (05:30→06:00)
[2018-12-30] MEDS ORDERED: SODIUM CHLORIDE FLUSH 10ML SYR IVF ONE (05:30)
--- NOTE | 2018-12-30 05:45 | NUR ---
PT WITH IV MEDS STARTED AND BLOOD TO LAB. PT KEEPS FALLING ASLEEP BUT AWAKES TO VERBAL STIM. PY WITH BOTH HR IN 45 TO 55 RANGE WITH BP 95/50 TO 85/40. IVF CONTINUE AND PT GIVEN WARM BLANKETS AND POSITIONED FOR COMFORT.
[2018-12-30 05:56] LABS: BASOPHILS # (AUTO) 0.03 x10^3/uL (0-0.1); BASOPHILS % (AUTO) 0 % (0-1); EOSINOPHILS # (AUTO) 0.31 x10^3/uL (0-0.4); EOSINOPHILS % (AUTO) 4 % (1-7); LYMPHOCYTES # (AUTO) 1.85 x10^3/uL (1-3.4); LYMPHOCYTES % (AUTO) 23 % (22-44); MD NO; MEAN CORPUSCULAR HEMOGLOBIN 31.7 pg (27.5-34.5); MEAN CORPUSCULAR HGB CONC 33.7 g/dL (33.2-36.2); MEAN CORPUSCULAR VOLUME 94.1 fL (81-97); MEAN PLATELET VOLUME 8.1 fL (7.4-10.4); MONOCYTES # (AUTO) 0.38 x10^3/uL (0.2-0.8); MONOCYTES % (AUTO) 5 % (2-9); NEUTROPHILS # (AUTO) 5.53 x10^3/uL (1.8-6.8); NEUTROPHILS % (AUTO) 68 % (42-75); PLATELET COUNT 257 x10^3/uL (130-400); RED BLOOD COUNT 3.67 x10^6/uL (4.38-5.82); RED CELL DISTRIBUTION WIDTH 12.4 % (9.4-14.8)
[2018-12-30 06:02] LABS: INTERNATIONAL NORMALIZED RATIO 1.06 (0.93-1.1); PROTHROMBIN TIME 11.1 Seconds (9.6-11.5)
[2018-12-30 06:09] LABS: ALBUMIN 2.7 g/dL (3.4-5.0); ANION GAP 6 mmol/L (5-15); CALCIUM 8.2 mg/dL (8.5-10.1); CHLORIDE 111 mmol/L (98-107)
[2018-12-30 06:13] LABS: ALANINE AMINOTRANSFERASE 20 U/L (12-78); ALKALINE PHOSPHATASE 64 U/L (45-117); BILIRUBIN,TOTAL 0.6 mg/dL (0.2-1.0); CREATININE 1.44 mg/dL (0.7-1.3); TOTAL PROTEIN 6.2 g/dL (6.4-8.2)
[2018-12-30] MEDS ORDERED: SODIUM CHLORIDE 0.9% 1,000 ML IV ONE (07:00)
[2018-12-30 07:13] LABS: SALICYLATE LEVEL < 1.7 mg/dL (2.8-20.0)
--- NOTE | 2018-12-30 07:16 | NUR ---
REPORT FROM CLAIR Greer RN. ASSUMING CARE OF PT.
[2018-12-30] MEDS: BUDESONIDE 0.5 MG/2 ML INHA NPPB SCH ×2 (07:30→20:38)
--- NOTE | 2018-12-30 08:02 | NUR ---
PT RESTING ON GURNEY. ALERT TO VERBAL STIM. SLOW TO RESPOND BUT ORIENTED X 4. DROWSY. BLOOD PRESSURE REMAINS BORDERLINE LOW. MD AWARE. IVF INFUSING AND PROTONIX GTT INFUSING PER ORDER. AWAITING GI CONSULT AND ADMIT DISPO. SIDERAILS UP X [address]
--- NOTE | 2018-12-30 09:04 | NUR ---
PT VOIDED APPROX 175 ML CLEAR YELLOW URINE
--- NOTE | 2018-12-30 09:04 | NUR ---
REPORT TO IDRIS PRATT.
[2018-12-30 09:23] VITALS: BP 106/67
[2018-12-30 09:30] LABS: MICROSCOPIC INDICATED
[2018-12-30 09:31] LABS: CULTURE INDICATED? YES
[2018-12-30 09:32] LABS: AMPHETAMINE SCREEN, URINE Positive (Negative); BARBITURATE SCREEN, URINE Negative (Negative); BENZODIAZEPINE SCREEN, URINE Negative (Negative); CANNABINOID SCREEN, URINE Negative (Negative); COCAINE SCREEN, URINE Negative (Negative); METHADONE SCREEN, URINE Negative (Negative); OPIATE SCREEN, URINE Negative (Negative)
[2018-12-30 10:27] VITALS: BP 110/62
[2018-12-30] MEDS ORDERED: ONDANSETRON 2MG/ML, 2ML IVPush PRN (10:30)
[2018-12-30] MEDS ORDERED: NITROGLYCERIN 0.4 MG BOTTLE (25 TABS) SL PRN (10:30)
[2018-12-30] MEDS ORDERED: hydrALAzine 20 MG/ML, 1ML IVPush PRN (10:30)
[2018-12-30] MEDS ORDERED: HYDROXYZINE PAMOATE 25MG CAP PO PRN (10:30)
[2018-12-30] MEDS ORDERED: ALBUTEROL SULFATE 2.5 MG/3 ML NPPB PRN (11:00)
[2018-12-30] MEDS: ESCITALOPRAM 10MG TABLET PO SCH (11:59)
[2018-12-30] MEDS: OXCARBAZEPINE 300MG TABLET PO SCH ×2 (11:59→20:05)
[2018-12-30 12:10] VITALS: BP 107/67
[2018-12-30] MEDS ORDERED: POTASSIUM CHLORIDE 40 MEQ in SODIUM CHLORIDE 0.9% 500 ML IV ONE (15:30)
[2018-12-30] MEDS: D5%-LACTATED RINGERS 1,000 ML IV SCH (18:10)
[2018-12-30 19:07] VITALS: BP 136/82
[2018-12-30] MEDS: QUETIAPINE 100MG TABLET PO SCH (20:05)
[2018-12-30] MEDS: SIMVASTATIN 40 MG TABLET PO SCH (20:05)
[2018-12-30] MEDS: ALBUTEROL SULFATE 2.5 MG/3 ML NPPB SCH (20:38)
[2018-12-31 02:16] VITALS: BP 126/68
[2018-12-31] MEDS: D5%-LACTATED RINGERS 1,000 ML IV SCH ×3 (03:10→21:41)
[2018-12-31] MEDS: LEVOTHYROXINE 100 MCG TABLET PO SCH (05:12)
[2018-12-31] MEDS ORDERED: PANTOPRAZOLE 80 MG in SODIUM CHLORIDE 0.9% 100 ML IV SCH ×2 (05:23→10:30)
[2018-12-31 05:26] LABS: BASOPHILS # (AUTO) 0.04 x10^3/uL (0-0.1); BASOPHILS % (AUTO) 1 % (0-1); EOSINOPHILS # (AUTO) 0.14 x10^3/uL (0-0.4); EOSINOPHILS % (AUTO) 3 % (1-7); LYMPHOCYTES # (AUTO) 1.73 x10^3/uL (1-3.4); LYMPHOCYTES % (AUTO) 40 % (22-44); MD NO; MEAN CORPUSCULAR HEMOGLOBIN 31.2 pg (27.5-34.5); MEAN CORPUSCULAR HGB CONC 33.5 g/dL (33.2-36.2); MEAN CORPUSCULAR VOLUME 93.3 fL (81-97); MONOCYTES # (AUTO) 0.28 x10^3/uL (0.2-0.8); MONOCYTES % (AUTO) 6 % (2-9); NEUTROPHILS # (AUTO) 2.19 x10^3/uL (1.8-6.8); NEUTROPHILS % (AUTO) 50 % (42-75); PLATELET COUNT 218 x10^3/uL (130-400); RED BLOOD COUNT 3.24 x10^6/uL (4.38-5.82); RED CELL DISTRIBUTION WIDTH 12.4 % (9.4-14.8)
[2018-12-31 05:31] LABS: CHLORIDE 116 mmol/L (98-107)
[2018-12-31 05:37] LABS: ANION GAP 6 mmol/L (5-15); CALCIUM 8.4 mg/dL (8.5-10.1); CREATININE 0.83 mg/dL (0.7-1.3)
[2018-12-31 06:47] VITALS: BP 126/71
[2018-12-31] MEDS: ALBUTEROL SULFATE 2.5 MG/3 ML NPPB SCH (07:30)
[2018-12-31] MEDS: OXCARBAZEPINE 300MG TABLET PO SCH ×2 (08:52→21:04)
[2018-12-31] MEDS: ESCITALOPRAM 10MG TABLET PO SCH (08:52)
[2018-12-31] MEDS: FLUTICASONE NASAL SPRAY 16GM NAS SCH (08:52)
[2018-12-31] MEDS ORDERED: ALBUTEROL/IPRATROPIUM 2.5MG/0.5MG, 3 ML HHN SCH (09:00)
[2018-12-31] MEDS: ESOMEPRAZOLE SODIUM 80 MG in SODIUM CHLORIDE 0.9% 100 ML IVPush SCH ×2 (10:55→23:45)
[2018-12-31] MEDS ORDERED: GUAIFENESIN 200 MG TABLET PO SCH (11:00)
[2018-12-31] MEDS ORDERED: PROPOFOL 10 MG/ML, 20ML ONE (12:52)
[2018-12-31] MEDS ORDERED: PROMETHAZINE 25 MG/ML, 1ML IV PRN (13:30)
[2018-12-31] MEDS ORDERED: DIAZEPAM 5 MG/ML, 2ML IVPush PRN (13:30)
[2018-12-31] MEDS ORDERED: hydrALAzine 20 MG/ML, 1ML IV PRN (13:30)
[2018-12-31] MEDS ORDERED: MEPERIDINE/PF 25MG/0.5ML IVPush PRN (13:30)
[2018-12-31] MEDS ORDERED: MORPHINE SULFATE 4 MG/ML, 1ML IVPush PRN (13:30)
[2018-12-31] MEDS ORDERED: OXYcodone 5 MG/5 ML ORAL.SOL UDC PO PRN (13:30)
[2018-12-31] MEDS ORDERED: EPHEDRINE 50 MG/ML, 1ML IVPush PRN (13:30)
[2018-12-31] MEDS ORDERED: PROMETHAZINE 12.5 MG SUPP PR PRN (13:30)
[2018-12-31] MEDS ORDERED: HALOPERIDOL 5 MG/ML IV PRN (13:30)
[2018-12-31] MEDS ORDERED: ALBUTEROL SULFATE 2.5 MG/3 ML NPPB PRN (13:30)
[2018-12-31] MEDS ORDERED: FENTANYL PF 100 MCG/2ML IV PRN (13:30)
[2018-12-31] MEDS ORDERED: LABETALOL 5MG/ML, 20ML IV PRN (13:30)
[2018-12-31] MEDS ORDERED: ONDANSETRON ODT 8 MG PO PRN (13:30)
[2018-12-31] MEDS ORDERED: HYDROmorphone 2 MG/ML, 1ML IVPush PRN (13:30)
[2018-12-31] MEDS ORDERED: MIDAZOLAM 1 MG/ML, 2ML IV PRN (13:30)
[2018-12-31] MEDS ORDERED: ONDANSETRON 2MG/ML, 2ML IV PRN (13:30)
[2018-12-31 14:25] VITALS: BP 114/56
[2018-12-31 19:18] VITALS: BP 112/63
[2018-12-31] MEDS: BUDESONIDE 0.5 MG/2 ML INHA NPPB SCH (19:21)
[2018-12-31] MEDS: QUETIAPINE 100MG TABLET PO SCH (21:04)
[2018-12-31] MEDS: SIMVASTATIN 40 MG TABLET PO SCH (21:04)
[2018-12-31 21:19] VITALS: BP 92/52
[2019-01-01 00:58] VITALS: BP 95/55
[2019-01-01] MEDS: LEVOTHYROXINE 100 MCG TABLET PO SCH (05:02)
[2019-01-01 06:36] LABS: BASOPHILS # (AUTO) 0.03 x10^3/uL (0-0.1); BASOPHILS % (AUTO) 1 % (0-1); EOSINOPHILS # (AUTO) 0.32 x10^3/uL (0-0.4); EOSINOPHILS % (AUTO) 6 % (1-7); LYMPHOCYTES # (AUTO) 1.68 x10^3/uL (1-3.4); LYMPHOCYTES % (AUTO) 29 % (22-44); MD NO; MEAN CORPUSCULAR HEMOGLOBIN 31.6 pg (27.5-34.5); MEAN CORPUSCULAR HGB CONC 33.1 g/dL (33.2-36.2); MEAN CORPUSCULAR VOLUME 95.4 fL (81-97); MEAN PLATELET VOLUME 8.4 fL (7.4-10.4); MONOCYTES # (AUTO) 0.24 x10^3/uL (0.2-0.8); MONOCYTES % (AUTO) 4 % (2-9); NEUTROPHILS # (AUTO) 3.52 x10^3/uL (1.8-6.8); NEUTROPHILS % (AUTO) 61 % (42-75); PLATELET COUNT 192 x10^3/uL (130-400); RED BLOOD COUNT 2.64 x10^6/uL (4.38-5.82); RED CELL DISTRIBUTION WIDTH 12.8 % (9.4-14.8)
[2019-01-01 06:45] LABS: ANION GAP 3 mmol/L (5-15); CALCIUM 7.9 mg/dL (8.5-10.1); CHLORIDE 114 mmol/L (98-107); CREATININE 0.79 mg/dL (0.7-1.3)
[2019-01-01 07:51] VITALS: BP 106/47
[2019-01-01] MEDS: BUDESONIDE 0.5 MG/2 ML INHA NPPB SCH ×2 (09:00→15:18)
[2019-01-01] MEDS: FLUTICASONE NASAL SPRAY 16GM NAS SCH (09:47)
[2019-01-01] MEDS: OXCARBAZEPINE 300MG TABLET PO SCH ×2 (09:47→20:38)
[2019-01-01] MEDS: D5%-LACTATED RINGERS 1,000 ML IV SCH (09:47)
[2019-01-01] MEDS: ESCITALOPRAM 10MG TABLET PO SCH (09:47)
[2019-01-01] MEDS: ESOMEPRAZOLE SODIUM 80 MG in SODIUM CHLORIDE 0.9% 100 ML IVPush SCH (10:58)
[2019-01-01 13:31] VITALS: BP 98/56
[2019-01-01] MEDS: OMEPRAZOLE 20 MG CAPSULE.DR PO SCH (17:56)
[2019-01-01 19:43] VITALS: BP 108/59
[2019-01-01] MEDS: SIMVASTATIN 40 MG TABLET PO SCH (20:38)
[2019-01-01] MEDS: QUETIAPINE 100MG TABLET PO SCH (20:39)
[2019-01-02 00:26] VITALS: BP 115/66
[2019-01-02] MEDS: LEVOTHYROXINE 100 MCG TABLET PO SCH (05:39)
[2019-01-02] MEDS: OMEPRAZOLE 20 MG CAPSULE.DR PO SCH ×2 (05:40→17:36)
[2019-01-02] MEDS: BUDESONIDE 0.5 MG/2 ML INHA NPPB SCH (06:47)
[2019-01-02 07:37] VITALS: BP 107/60
[2019-01-02] MEDS: OXCARBAZEPINE 300MG TABLET PO SCH (08:36)
[2019-01-02] MEDS: ESCITALOPRAM 10MG TABLET PO SCH (08:36)
[2019-01-02] MEDS: FLUTICASONE NASAL SPRAY 16GM NAS SCH (08:37)
[2019-01-02 09:29] LABS: BASOPHILS # (AUTO) 0.03 x10^3/uL (0-0.1); BASOPHILS % (AUTO) 1 % (0-1); EOSINOPHILS # (AUTO) 0.26 x10^3/uL (0-0.4); EOSINOPHILS % (AUTO) 5 % (1-7); LYMPHOCYTES % (AUTO) 26 % (22-44); MD NO; MEAN CORPUSCULAR HEMOGLOBIN 31.3 pg (27.5-34.5); MEAN CORPUSCULAR HGB CONC 33.2 g/dL (33.2-36.2); MEAN CORPUSCULAR VOLUME 94.3 fL (81-97); MEAN PLATELET VOLUME 8.3 fL (7.4-10.4); MONOCYTES # (AUTO) 0.21 x10^3/uL (0.2-0.8); MONOCYTES % (AUTO) 4 % (2-9); NEUTROPHILS # (AUTO) 3.57 x10^3/uL (1.8-6.8); NEUTROPHILS % (AUTO) 65 % (42-75); PLATELET COUNT 212 x10^3/uL (130-400); RED BLOOD COUNT 2.86 x10^6/uL (4.38-5.82); RED CELL DISTRIBUTION WIDTH 12.5 % (9.4-14.8)
[2019-01-02 09:36] LABS: ALANINE AMINOTRANSFERASE 18 U/L (12-78); ALBUMIN 2.4 g/dL (3.4-5.0); ANION GAP 6 mmol/L (5-15); CALCIUM 7.9 mg/dL (8.5-10.1); CHLORIDE 112 mmol/L (98-107); CREATININE 0.74 mg/dL (0.7-1.3)
[2019-01-02 09:38] LABS: ALKALINE PHOSPHATASE 62 U/L (45-117); BILIRUBIN,TOTAL 0.2 mg/dL (0.2-1.0); TOTAL PROTEIN 5.3 g/dL (6.4-8.2)
[2019-01-02] MEDS ORDERED: ACETAMINOPHEN 325 MG TABLET ONE (13:13)
[2019-01-02] MEDS ORDERED: ACETAMINOPHEN 325 MG TABLET PO PRN (13:30)
[2019-01-02 15:43] VITALS: BP 110/66
[2019-01-02 20:25] VITALS: BP 112/66
[2019-01-02] MEDS: QUETIAPINE 100MG TABLET PO SCH (20:45)
[2019-01-02] MEDS: SIMVASTATIN 40 MG TABLET PO SCH (20:46)
[2019-01-03 00:39] VITALS: BP 103/64
[2019-01-03] MEDS: LEVOTHYROXINE 100 MCG TABLET PO SCH (06:21)
[2019-01-03] MEDS: OMEPRAZOLE 20 MG CAPSULE.DR PO SCH (06:21)
[2019-01-03 07:02] VITALS: BP 119/64
[2019-01-03] MEDS: FLUTICASONE NASAL SPRAY 16GM NAS SCH (09:17)
[2019-01-03] MEDS: ESCITALOPRAM 10MG TABLET PO SCH (09:17)
[2019-01-03] MEDS: BUDESONIDE 0.5 MG/2 ML INHA NPPB SCH (09:30)
[2019-01-03 10:09] LABS: MEAN CORPUSCULAR HGB CONC 33.2 g/dL (33.2-36.2); MEAN CORPUSCULAR VOLUME 93.6 fL (81-97); MEAN PLATELET VOLUME 8.3 fL (7.4-10.4); PLATELET COUNT 234 x10^3/uL (130-400); RED BLOOD COUNT 2.91 x10^6/uL (4.38-5.82); RED CELL DISTRIBUTION WIDTH 12.6 % (9.4-14.8)
[2019-01-03 10:12] LABS: ANION GAP 5 mmol/L (5-15); CALCIUM 8.1 mg/dL (8.5-10.1); CHLORIDE 110 mmol/L (98-107); CREATININE 0.67 mg/dL (0.7-1.3)
[2019-01-03 10:31] LABS: BASOPHILS # (AUTO) 0.03 x10^3/uL (0-0.1); BASOPHILS % (AUTO) 0 % (0-1); EOSINOPHILS # (AUTO) 0.43 x10^3/uL (0-0.4); EOSINOPHILS % (AUTO) 4 % (1-7); LYMPHOCYTES # (AUTO) 1.32 x10^3/uL (1-3.4); LYMPHOCYTES % (AUTO) 12 % (22-44); MD SCAN; MONOCYTES # (AUTO) 0.33 x10^3/uL (0.2-0.8); MONOCYTES % (AUTO) 3 % (2-9); NEUTROPHILS # (AUTO) 8.55 x10^3/uL (1.8-6.8); NEUTROPHILS % (AUTO) 80 % (42-75)
[2019-01-03 12:44] VITALS: BP 128/65
[2019-01-03] MEDS ORDERED: OMEP-110 PO (12:51)
== END 2019-01-03 16:00 | disposition home health service (06) | DRG 377 ==
LOC: ED 07:26 → EDIP 09:00 → 4WST 09:15 → DCLOUNGE 01-03 15:43
PROVIDERS: ADMIT Internal Medicine; ATTEND Internal Medicine
PROC: 0DB68ZX Excision of Stomach, Via Natural or Artificial Opening Endoscopic, Diagnostic (ICD-10-PCS; principal; 2018-12-31 13:00)
DX: K25.4 Chronic or unspecified gastric ulcer with hemorrhage (principal); N17.0 Acute kidney failure with tubular necrosis; D62 Acute posthemorrhagic anemia; I13.0 Hypertensive heart and chronic kidney disease with heart failure and stage 1 through stage 4 chronic kidney disease, or unspecified chronic kidney disease; I50.32 Chronic diastolic (congestive) heart failure; K26.4 Chronic or unspecified duodenal ulcer with hemorrhage; E03.9 Hypothyroidism, unspecified; E78.5 Hyperlipidemia, unspecified; E87.6 Hypokalemia; F09 Unspecified mental disorder due to known physiological condition; F17.200 Nicotine dependence, unspecified, uncomplicated; G40.909 Epilepsy, unspecified, not intractable, without status epilepticus; J45.909 Unspecified asthma, uncomplicated; R32 Unspecified urinary incontinence; K59.00 Constipation, unspecified; N18.9 Chronic kidney disease, unspecified; W18.39XA Other fall on same level, initial encounter; Y93.89 Activity, other specified; Z88.6 Allergy status to analgesic agent; Z88.5 Allergy status to narcotic agent; Z88.0 Allergy status to penicillin; Z91.018 Allergy to other foods; Y92.89 Other specified places as the place of occurrence of the external cause; Y99.8 Other external cause status; Z79.899 Other long term (current) drug therapy; Z86.73 Personal history of transient ischemic attack (TIA), and cerebral infarction without residual deficits; I25.2 Old myocardial infarction; Z71.6 Tobacco abuse counseling
CPT/HCPCS: 36415; 80048; 80053; 80307; 81001; 83735; 84100; 85014; 85018; 85025; 85610; 85730; 86850; 86900; 87086; 88305; 88342; 93005; 94640; 95816; 96361; 96374; G0378; J2704; J3480; J7613; J7626; C9113; J7030; J7040; J7121

== ENCOUNTER 2019-01-06 04:54 | Observation (INO) | payer OTHER, MEDICAID ==
[~2019-01-06] VITALS: Ht 177.8 cm; Wt 94.4 kg
[~2019-01-06 04:54] MED LIST changes: +OMEP-110 PO
--- NOTE | 2019-01-06 05:00 | NUR ---
PT IN GOWN IN [facility]. ALEXANDRA CASAREZ AT BS. PT EDUCATED ON ER PROCESS AND POC AND VERBALIZES UNDERSTANDING. PT VSS UPON ARRIVAL TO [facility] ED. CALL LIGHT IS WITHIN REACH.
[2019-01-06] MEDS ORDERED: LORazepam 1MG TABLET ONE (05:28)
[2019-01-06] MEDS ORDERED: LORazepam 1MG TABLET PO ONE (05:30)
--- NOTE | 2019-01-06 05:33 | NUR ---
pt medicated per mar. pt urine collected and sent to lab.
[2019-01-06 05:47] LABS: BASOPHILS # (AUTO) 0.03 x10^3/uL (0-0.1); BASOPHILS % (AUTO) 1 % (0-1); EOSINOPHILS % (AUTO) 6 % (1-7); LYMPHOCYTES # (AUTO) 1.56 x10^3/uL (1-3.4); LYMPHOCYTES % (AUTO) 24 % (22-44); MD NO; MEAN CORPUSCULAR HEMOGLOBIN 30.8 pg (27.5-34.5); MEAN CORPUSCULAR HGB CONC 33.1 g/dL (33.2-36.2); MEAN CORPUSCULAR VOLUME 93.1 fL (81-97); MEAN PLATELET VOLUME 8.1 fL (7.4-10.4); MONOCYTES # (AUTO) 0.45 x10^3/uL (0.2-0.8); MONOCYTES % (AUTO) 7 % (2-9); NEUTROPHILS # (AUTO) 4.09 x10^3/uL (1.8-6.8); NEUTROPHILS % (AUTO) 63 % (42-75); PLATELET COUNT 290 x10^3/uL (130-400); RED BLOOD COUNT 2.61 x10^6/uL (4.38-5.82); RED CELL DISTRIBUTION WIDTH 12.7 % (9.4-14.8)
[2019-01-06 05:49] LABS: MICROSCOPIC NOT IND
[2019-01-06 05:51] LABS: CULTURE INDICATED? NO
[2019-01-06 06:00] LABS: ALANINE AMINOTRANSFERASE 25 U/L (12-78); ALBUMIN 2.6 g/dL (3.4-5.0); ANION GAP 5 mmol/L (5-15); CALCIUM 8.7 mg/dL (8.5-10.1); CHLORIDE 110 mmol/L (98-107); CREATININE 0.72 mg/dL (0.7-1.3)
[2019-01-06 06:02] LABS: ALKALINE PHOSPHATASE 67 U/L (45-117); BILIRUBIN,TOTAL 0.2 mg/dL (0.2-1.0); TOTAL PROTEIN 6.4 g/dL (6.4-8.2)
--- NOTE | 2019-01-06 06:09 | NUR ---
PT RESTING IN [facility] AT THIS TIME; NADN. TYPE AND CROSS SCREEN ORDERED FOR LOW HGB AND NEED FOR POSSIBLE TRANSFUSION.
--- NOTE | 2019-01-06 06:31 | NUR ---
PT HAD AN INCONTINENT EPISODE OF URINE. PT CLOTHING REMOVED AND PLACED IN PT BELONGINGS BAG AND PLACED WITH PT WHEELCHAIR. PT REINTRODUCED TO CALL LIGHT. URINAL NEXT TO PT AT THIS TIME. VSS AND UPDATED IN EMR.
[2019-01-06] MEDS ORDERED: SODIUM CHLORIDE 0.9% 1,000 ML IV ONE (06:35)
[2019-01-06] MEDS ORDERED: PANTOPRAZOLE 40 MG IV ONE (06:41)
[2019-01-06] MEDS ORDERED: PANTOPRAZOLE 40 MG IV IVPush ONE (07:00)
--- NOTE | 2019-01-06 07:15 | NUR ---
ATTEMPTED IV ACCESS X 2, WITH UNSUCCESSFUL ATTEMPTS. REPORT OF PT TO TERENCE VALDEZ. RECONSTITUTED MEDICATION LABELED AND HANDED TO TERENCE VALDEZ. JOSÉ MIGUEL TO ADMINISTER MEDICATION ONCE IV ACCESS IS ESTABLISHED.
--- NOTE | 2019-01-06 07:57 | NUR ---
Report called to TERENCE Martin on , POC discussed, hospitalist at bedside at this time.
[2019-01-06] MEDS ORDERED: POLYETHYLENE GLYCOL 17 GM PACKET PO PRN (08:00)
[2019-01-06] MEDS ORDERED: ONDANSETRON ODT 4 MG PO PRN (08:00)
[2019-01-06] MEDS ORDERED: ONDANSETRON 2MG/ML, 2ML IVPush PRN (08:00)
[2019-01-06] MEDS ORDERED: ACETAMINOPHEN 325 MG TABLET PO PRN (08:00)
[2019-01-06] MEDS ORDERED: FAMOTIDINE 20 MG TABLET PO SCH (09:00)
[2019-01-06 09:08] LABS: AMPHETAMINE SCREEN, URINE Negative (Negative); BARBITURATE SCREEN, URINE Negative (Negative); BENZODIAZEPINE SCREEN, URINE Negative (Negative); CANNABINOID SCREEN, URINE Negative (Negative); COCAINE SCREEN, URINE Negative (Negative); METHADONE SCREEN, URINE Negative (Negative); OPIATE SCREEN, URINE Negative (Negative)
[2019-01-06] MEDS: SODIUM CHLORIDE 0.9% 1,000 ML IV SCH ×2 (09:13→16:09)
[2019-01-06] MEDS: LEVOTHYROXINE 100 MCG TABLET PO SCH (09:13)
[2019-01-06] MEDS: ESCITALOPRAM 10MG TABLET PO SCH (09:13)
[2019-01-06] MEDS: SENNA/DOCUSATE TABLET PO SCH (09:14)
[2019-01-06] MEDS: FLUTICASONE NASAL SPRAY 16GM NAS SCH (09:14)
[2019-01-06] MEDS: TEMPLATE NON-FORMULARY MED. (Budesonide/Formoterol Fumarate (Symbicort 160-4.5 Mcg Inhaler INH SCH (09:14)
[2019-01-06] MEDS: ALBUTEROL SULFATE 2.5 MG/3 ML NPPB SCH ×3 (10:30→18:00)
[2019-01-06] MEDS: BUDESONIDE 0.5 MG/2 ML INHA INH SCH ×2 (10:30→20:15)
[2019-01-06 13:00] VITALS: BP 125/83
[2019-01-06] MEDS: OMEPRAZOLE 20 MG CAPSULE.DR PO SCH (16:08)
[2019-01-06 19:23] VITALS: BP 107/64
[2019-01-06] MEDS: HYDROXYZINE PAMOATE 25MG CAP PO PRN (20:44)
[2019-01-06] MEDS ORDERED: QUETIAPINE 100MG TABLET PO SCH (21:00)
[2019-01-06] MEDS ORDERED: SIMVASTATIN 40 MG TABLET PO SCH (21:00)
[2019-01-07 02:16] VITALS: BP 93/53
[2019-01-07 04:44] LABS: BASOPHILS # (AUTO) 0.04 x10^3/uL (0-0.1); BASOPHILS % (AUTO) 1 % (0-1); EOSINOPHILS # (AUTO) 0.24 x10^3/uL (0-0.4); EOSINOPHILS % (AUTO) 5 % (1-7); LYMPHOCYTES # (AUTO) 1.41 x10^3/uL (1-3.4); LYMPHOCYTES % (AUTO) 31 % (22-44); MD NO; MEAN CORPUSCULAR HEMOGLOBIN 30.7 pg (27.5-34.5); MEAN CORPUSCULAR HGB CONC 32.7 g/dL (33.2-36.2); MEAN CORPUSCULAR VOLUME 93.8 fL (81-97); MEAN PLATELET VOLUME 8.1 fL (7.4-10.4); MONOCYTES # (AUTO) 0.33 x10^3/uL (0.2-0.8); MONOCYTES % (AUTO) 7 % (2-9); NEUTROPHILS # (AUTO) 2.55 x10^3/uL (1.8-6.8); NEUTROPHILS % (AUTO) 56 % (42-75); PLATELET COUNT 310 x10^3/uL (130-400); RED BLOOD COUNT 2.53 x10^6/uL (4.38-5.82)
[2019-01-07 04:51] LABS: ALBUMIN 2.4 g/dL (3.4-5.0); ANION GAP 2 mmol/L (5-15); CALCIUM 8.5 mg/dL (8.5-10.1); CHLORIDE 112 mmol/L (98-107)
[2019-01-07 04:56] LABS: ALANINE AMINOTRANSFERASE 24 U/L (12-78); ALKALINE PHOSPHATASE 63 U/L (45-117); BILIRUBIN,TOTAL 0.3 mg/dL (0.2-1.0); CREATININE 0.67 mg/dL (0.7-1.3); TOTAL PROTEIN 6.1 g/dL (6.4-8.2)
[2019-01-07] MEDS: LEVOTHYROXINE 100 MCG TABLET PO SCH (05:27)
[2019-01-07] MEDS: HYDROXYZINE PAMOATE 25MG CAP PO PRN (05:28)
[2019-01-07] MEDS: OMEPRAZOLE 20 MG CAPSULE.DR PO SCH ×2 (05:28→16:08)
[2019-01-07] MEDS: SODIUM CHLORIDE 0.9% 1,000 ML IV SCH (05:28)
[2019-01-07] MEDS: ALBUTEROL SULFATE 2.5 MG/3 ML NPPB SCH ×3 (06:00→12:00)
[2019-01-07] MEDS: BUDESONIDE 0.5 MG/2 ML INHA INH SCH (07:37)
[2019-01-07 07:45] VITALS: BP 93/56
[2019-01-07] MEDS: SENNA/DOCUSATE TABLET PO SCH (08:40)
[2019-01-07] MEDS: ESCITALOPRAM 10MG TABLET PO SCH (08:40)
[2019-01-07] MEDS: FLUTICASONE NASAL SPRAY 16GM NAS SCH (08:40)
[2019-01-07] MEDS: TEMPLATE NON-FORMULARY MED. (Budesonide/Formoterol Fumarate (Symbicort 160-4.5 Mcg Inhaler INH SCH (08:49)
[2019-01-07 14:51] VITALS: BP 109/64
[2019-01-07 15:13] LABS: CLOSTRIDIUM DIFFICILE ANTIGEN NEGATIVE; CLOSTRIDIUM DIFFICILE TOXIN NEGATIVE (Negative)
== END 2019-01-07 16:33 | disposition home or self-care (01) ==
LOC: ED 06:09 → INTOOBSV 06:41 → ED 06:41 → 4NOR 06:41
PROVIDERS: ADMIT Hospitalist; ATTEND Hospitalist
DX: R10.31 Right lower quadrant pain (principal); G40.909 Epilepsy, unspecified, not intractable, without status epilepticus; E78.5 Hyperlipidemia, unspecified; E03.9 Hypothyroidism, unspecified; J45.909 Unspecified asthma, uncomplicated; I11.0 Hypertensive heart disease with heart failure; I50.32 Chronic diastolic (congestive) heart failure; D64.9 Anemia, unspecified; K92.2 Gastrointestinal hemorrhage, unspecified; I31.3 Pericardial effusion (noninflammatory); F19.10 Other psychoactive substance abuse, uncomplicated; R53.81 Other malaise; F17.210 Nicotine dependence, cigarettes, uncomplicated; R41.89 Other symptoms and signs involving cognitive functions and awareness; Z86.73 Personal history of transient ischemic attack (TIA), and cerebral infarction without residual deficits; Z88.6 Allergy status to analgesic agent; Z88.0 Allergy status to penicillin; Z88.5 Allergy status to narcotic agent; Z88.1 Allergy status to other antibiotic agents; Z91.018 Allergy to other foods; Z79.899 Other long term (current) drug therapy
CPT/HCPCS: 36415; 74176; 80053; 80307; 81003; 83605; 83735; 84100; 84145; 84443; 85014; 85018; 85025; 86850; 86900; 87324; 94640; 96374; 97161; 99284; C9113; G0378; J7030; J7613; J7626

== ENCOUNTER 2019-01-16 20:29 | Emergency (ER) | payer OTHER, MEDICAID ==
[~2019-01-16] VITALS: Ht 177.8 cm; Wt 94.0 kg
[2019-01-16] MEDS ORDERED: LORazepam 2 MG/ML, 1ML IM PRN (21:00)
[2019-01-16] MEDS ORDERED: LORazepam 2 MG/ML, 1ML ONE (21:03)
[2019-01-16 21:24] LABS: BASOPHILS # (AUTO) 0.04 x10^3/uL (0-0.1); BASOPHILS % (AUTO) 1 % (0-1); EOSINOPHILS # (AUTO) 0.13 x10^3/uL (0-0.4); EOSINOPHILS % (AUTO) 2 % (1-7); LYMPHOCYTES # (AUTO) 1.49 x10^3/uL (1-3.4); LYMPHOCYTES % (AUTO) 18 % (22-44); MD NO; MEAN CORPUSCULAR HGB CONC 32.7 g/dL (33.2-36.2); MEAN CORPUSCULAR VOLUME 91.8 fL (81-97); MEAN PLATELET VOLUME 7.4 fL (7.4-10.4); MONOCYTES # (AUTO) 0.43 x10^3/uL (0.2-0.8); MONOCYTES % (AUTO) 5 % (2-9); NEUTROPHILS # (AUTO) 6.14 x10^3/uL (1.8-6.8); NEUTROPHILS % (AUTO) 75 % (42-75); PLATELET COUNT 360 x10^3/uL (130-400); RED BLOOD COUNT 3.34 x10^6/uL (4.38-5.82); RED CELL DISTRIBUTION WIDTH 13.4 % (9.4-14.8)
[2019-01-16 21:37] LABS: ALANINE AMINOTRANSFERASE 27 U/L (12-78); ALBUMIN 3.8 g/dL (3.4-5.0); ANION GAP 8 mmol/L (5-15); CALCIUM 9.2 mg/dL (8.5-10.1); CHLORIDE 111 mmol/L (98-107); CREATININE 1.16 mg/dL (0.7-1.3)
--- NOTE | 2019-01-16 21:40 | NUR ---
PT INITIALLY FLAILING ABOUT UPON HIS ARRIVAL. ONCE MOVED TO ROOM PT IMMEDIATELY SLEEPING. NAD. HOLDING ATIVAN AT THIS TIME.
[2019-01-16 21:41] LABS: ALKALINE PHOSPHATASE 83 U/L (45-117); BILIRUBIN,TOTAL 0.6 mg/dL (0.2-1.0); TOTAL PROTEIN 8.1 g/dL (6.4-8.2); TROPONIN I < 0.015 ng/mL (0.000-0.045)
[2019-01-16 22:06] VITALS: BP 145/88
--- NOTE | 2019-01-16 22:21 | NUR ---
PT REFUSING TO PROVIDE URINE SAMPLE AT THIS TIME. PT REFUSING TO ACKNOWLEDGE THIS RN. MUIR
--- NOTE | 2019-01-16 23:07 | NUR ---
PT DIFFICULT DISCHARGE. PT IGNORING RN. PTS BROTHER WAS CALLED HE IS HIS EMERGENCY CONTACT WHOM STATES HE DOES NOT WANT ANYTHING TO DO WITH THE PT. PT GIVEN TAXI VOUCHER.
--- NOTE | 2019-01-16 23:09 | NUR ---
PT AMBULATES WITH STEADY GAIT OUT OF ED.
== END 2019-01-16 23:11 | disposition home or self-care (01) ==
LOC: ED 22:03
DX: F41.1 Generalized anxiety disorder (principal); R06.4 Hyperventilation; F17.200 Nicotine dependence, unspecified, uncomplicated; Z90.89 Acquired absence of other organs; Z98.890 Other specified postprocedural states
CPT/HCPCS: 36415; 70450; 71045; 80053; 80307; 84484; 85025; 93005; 99284

== ENCOUNTER 2019-02-18 13:00 | Emergency (ER) | payer OTHER, MEDICAID ==
[~2019-02-18] VITALS: Ht 182.9 cm; Wt 80.0 kg
[~2019-02-18 13:00] MED LIST changes: -HYDR-3307 PO; +HYDR-36 PO
[2019-02-18] MEDS ORDERED: MAALOX/HYOSCYAMINE/LIDOCAINE 45 ML BTL PO ONE (13:30)
[2019-02-18] MEDS ORDERED: FAMOTIDINE 20 MG TABLET PO ONE (13:30)
[2019-02-18] MEDS ORDERED: SUCRALFATE 1 GM/10 ML UDC PO ONE (13:30)
[2019-02-18] MEDS ORDERED: FAMOTIDINE 20 MG TABLET ONE (13:51)
[2019-02-18] MEDS ORDERED: MAALOX/HYOSCYAMINE/LIDOCAINE 45 ML BTL ONE (13:51)
[2019-02-18 14:16] VITALS: BP 157/84
--- NOTE | 2019-02-18 14:17 | NUR ---
PATIENT IS RESTING COMFORTABLY ON AN E.R. GURNEY. NO ACUTE CHANGES NOTED SINCE HOIS ARRIVAL HERE TODAY. WE ARE ANTICIPATING D/C SOON.
== END 2019-02-18 15:09 | disposition home or self-care (01) ==
LOC: ED 15:04
DX: K21.0 Gastro-esophageal reflux disease with esophagitis (principal); K29.00 Acute gastritis without bleeding; I11.0 Hypertensive heart disease with heart failure; I50.9 Heart failure, unspecified; K21.9 Gastro-esophageal reflux disease without esophagitis; E03.9 Hypothyroidism, unspecified; I25.2 Old myocardial infarction; G40.909 Epilepsy, unspecified, not intractable, without status epilepticus; F17.200 Nicotine dependence, unspecified, uncomplicated; Z90.89 Acquired absence of other organs
CPT/HCPCS: 99283

== ENCOUNTER 2019-03-02 23:58 | Emergency (ER) | payer OTHER, MEDICAID ==
[~2019-03-02] VITALS: Ht 182.9 cm; Wt 100.0 kg
[2019-03-03 01:38] VITALS: BP 122/65
== END 2019-03-03 02:20 | disposition home or self-care (01) ==
LOC: ED 03-03 01:19
DX: K80.20 Calculus of gallbladder without cholecystitis without obstruction (principal); F15.929 Other stimulant use, unspecified with intoxication, unspecified; Z72.9 Problem related to lifestyle, unspecified; I25.2 Old myocardial infarction; K21.9 Gastro-esophageal reflux disease without esophagitis; I11.9 Hypertensive heart disease without heart failure; F17.200 Nicotine dependence, unspecified, uncomplicated
CPT/HCPCS: 36415; 74176; 80053; 80307; 81001; 83690; 85025; 87086; 99284

== ENCOUNTER 2019-07-03 07:15 | Observation (INO) | payer OTHER, MEDICAID ==
[~2019-07-03] VITALS: Ht 182.9 cm; Wt 104.3 kg
--- NOTE | 2019-07-03 07:45 | NUR ---
PT VERY DROWSY DIFFICULT TO OBTAIN INFO FROM. GATHERED THAT PT HAS C/O L CHEST PAIN, STARTING THIS AM, REPRODUCABLE PAIN ON EXAM. PT LETHARGIC, DOES TAKE BP MEDS AT HOME, QUESTION ETOH/DRUG ABUSE OR POSSIBLE OD ON BP MEDS. PT TO ALL MONITORS, PT SB 46-55 ON MONITOR ERPROVIDER AWARE. PT SLIGHTLY HYPOTENSIVE ALTHOUGH STABLE 90-100S SYSTOLIC. WILL CTM CLOSELY
[2019-07-03 08:21] LABS: BASOPHILS # (AUTO) 0.02 x10^3/uL (0-0.1); BASOPHILS % (AUTO) 1 % (0-1); EOSINOPHILS # (AUTO) 0.44 x10^3/uL (0-0.4); EOSINOPHILS % (AUTO) 9 % (1-7); LYMPHOCYTES # (AUTO) 1.22 x10^3/uL (1-3.4); LYMPHOCYTES % (AUTO) 24 % (22-44); MD NO; MEAN CORPUSCULAR HEMOGLOBIN 27.4 pg (27.5-34.5); MEAN CORPUSCULAR VOLUME 85.6 fL (81-97); MEAN PLATELET VOLUME 7.9 fL (7.4-10.4); MONOCYTES # (AUTO) 0.45 x10^3/uL (0.2-0.8); MONOCYTES % (AUTO) 9 % (2-9); NEUTROPHILS # (AUTO) 2.95 x10^3/uL (1.8-6.8); NEUTROPHILS % (AUTO) 58 % (42-75); PLATELET COUNT 256 x10^3/uL (130-400); RED BLOOD COUNT 3.76 x10^6/uL (4.38-5.82); RED CELL DISTRIBUTION WIDTH 16.3 % (9.4-14.8)
[2019-07-03 08:30] LABS: ALBUMIN 2.9 g/dL (3.4-5.0); CALCIUM 8.5 mg/dL (8.5-10.1); CHLORIDE 111 mmol/L (98-107)
[2019-07-03] MEDS ORDERED: SODIUM CHLORIDE 0.9% 1,000ML IVBOLUS ONE (08:30)
[2019-07-03 08:38] LABS: ALANINE AMINOTRANSFERASE 31 U/L (12-78); ALKALINE PHOSPHATASE 76 U/L (45-117); ANION GAP 6 mmol/L (5-15); BILIRUBIN,TOTAL 0.2 mg/dL (0.2-1.0); CREATININE 0.69 mg/dL (0.7-1.3); SALICYLATE LEVEL 1.9 mg/dL (2.8-20.0); TOTAL PROTEIN 6.7 g/dL (6.4-8.2); TROPONIN I < 0.015 ng/mL (0.000-0.045)
[2019-07-03] MEDS ORDERED: NALOXONE 0.4 MG/ML, 1ML ONE (09:22)
--- NOTE | 2019-07-03 09:25 | NUR ---
MULTIPLE ATTEMPTS TO OBTAIN UDS FROM PT, PT NOT ABLE TO STAY AWAKE LONG ENOUGH TO FOLLOW DIRECTION. UNABLE TO OBTAIN AT THIS TIME, ERMD UPDATED ORDER RECIEVED FOR NARCAN, PT MEDICATED PER MAR
[2019-07-03] MEDS ORDERED: NALOXONE 0.4 MG/ML, 1ML IVPush ONE (09:30)
--- NOTE | 2019-07-03 10:14 | NUR ---
PT REMAINS LETHARGIC, DIFFICULT TO ARROUSE POST NARCAN ADMIN. VSS, STILL UNABLE TO OBTAIN URINE SAMPLE. NAD NOTED
[2019-07-03 11:24] LABS: AMPHETAMINE SCREEN, URINE Negative (Negative); BARBITURATE SCREEN, URINE Negative (Negative); BENZODIAZEPINE SCREEN, URINE Negative (Negative); CANNABINOID SCREEN, URINE Negative (Negative); COCAINE SCREEN, URINE Negative (Negative); METHADONE SCREEN, URINE Negative (Negative); OPIATE SCREEN, URINE Negative (Negative)
--- NOTE | 2019-07-03 11:31 | NUR ---
PT CONTINUES TO REST ON GURNEY, MORE AWAKE THEN PREVIOUS, UDS COMPLETED AND SENT TO LAB, ERMD UPDATED ON PT STATUS.
--- NOTE | 2019-07-03 11:45 | NUR ---
TASK RN: RECEIVED REPORT FROM TERENCE WHITMORE.
[2019-07-03] MEDS ORDERED: SODIUM CHLORIDE 0.9%, 500ML IVBOLUS ONE (12:00)
--- NOTE | 2019-07-03 12:09 | NUR ---
TASK RN: PT AT IMAGING.
[2019-07-03 12:25] LABS: TROPONIN I < 0.015 ng/mL (0.000-0.045)
--- NOTE | 2019-07-03 12:26 | NUR ---
TASK RN: BEDSIDE REPORT TO TERENCE WHITMORE. PT BACK FROM IMAGING.
--- NOTE | 2019-07-03 12:57 | NUR ---
PT RESTING ON ALBERT BUI NOTED AT THIS TIME, NO NEEDS
--- NOTE | 2019-07-03 13:33 | NUR ---
PT PLACED FOR RECHECK
--- NOTE | 2019-07-03 13:48 | NUR ---
PT TO BE ADMITTED, ADMITTING MD AT BEDSIDE.
[2019-07-03] MEDS ORDERED: ACETAMINOPHEN 325 MG TABLET PO PRN (14:00)
[2019-07-03] MEDS ORDERED: ONDANSETRON 2MG/ML, 2ML IVPush PRN (14:00)
[2019-07-03] MEDS ORDERED: PROMETHAZINE 25 MG/ML, 1ML IM PRN (14:00)
[2019-07-03] MEDS: ENOXAPARIN 40 MG/0.4 ML SQ SCH (14:02)
[2019-07-03 14:30] LABS: TROPONIN I < 0.015 ng/mL (0.000-0.045)
--- NOTE | 2019-07-03 16:13 | NUR ---
PT RESTING ON GURNEY, AWAITING BED PLACEMENT. PT IS TELE HOLD. DINNER TRAY ORDERED FOR PT, NAD NOTED AT THIS TIME
--- NOTE | 2019-07-03 17:50 | NUR ---
PT GIVEN DINNER TRAY, NAD NOTED, NO OTHER NEEDS AT THIS TIME
[2019-07-03] MEDS ORDERED: OXCA600T3 PO (18:28)
--- NOTE | 2019-07-03 18:28 | NUR ---
PT WITH SEIZURE LIKE EPISODE LASTING APPROXIMATELY 4 SECS. PT STERNAL RUBBED AND ACTIVITY STOPPED. PT APPEARED TO BE IN [place] DURING EPISODE, ALTHOUGH COULD BE ARTIFACT. VSS POST EPISODE. ERIK CASAREZ CALLED TO UPDATE, ORDERS RECIEVED TO CONTINUE PTS OWN HOME TRILIPTAL. SEIZURE PRECAUTIONS PLACED
[2019-07-03] MEDS: OXCARBAZEPINE 150 MG TABLET PO SCH (18:42)
--- NOTE | 2019-07-03 19:07 | NUR ---
REPORT OF PT FROM TERENCE WHITMORE AND ASSUMING CARE OF PT AT THIS TIME.
--- NOTE | 2019-07-03 20:09 | NUR ---
REPORT OF PT TO TERENCE POWELL. ALL QUESTIONS ANSWERED. PT ASLEEP AT THIS TIME. TECH PAGED FOR TRANSPORT OF PT FROM ED TO FLOOR.
[2019-07-03 20:31] LABS: TROPONIN I < 0.015 ng/mL (0.000-0.045)
[2019-07-03 20:56] VITALS: BP 124/78
[2019-07-03] MEDS ORDERED: SIMVASTATIN 40 MG TABLET PO SCH (21:00)
[2019-07-03] MEDS: PLEASE ENTER HEIGHT AND WEIGHT MC SCH (21:00)
[2019-07-03] MEDS ORDERED: QUETIAPINE 100MG TABLET PO SCH (21:00)
[2019-07-03] MEDS: FAMOTIDINE 20 MG TABLET PO SCH (22:28)
[2019-07-04 02:08] VITALS: BP 92/51
[2019-07-04] MEDS: PLEASE ENTER HEIGHT AND WEIGHT MC SCH ×2 (05:00→13:00)
[2019-07-04 05:11] LABS: BASOPHILS # (AUTO) 0.05 x10^3/uL (0-0.1); BASOPHILS % (AUTO) 1 % (0-1); EOSINOPHILS # (AUTO) 0.32 x10^3/uL (0-0.4); EOSINOPHILS % (AUTO) 8 % (1-7); LYMPHOCYTES # (AUTO) 1.55 x10^3/uL (1-3.4); LYMPHOCYTES % (AUTO) 40 % (22-44); MD NO; MEAN CORPUSCULAR HEMOGLOBIN 26.8 pg (27.5-34.5); MEAN CORPUSCULAR HGB CONC 31.8 g/dL (33.2-36.2); MEAN CORPUSCULAR VOLUME 84.2 fL (81-97); MEAN PLATELET VOLUME 8.2 fL (7.4-10.4); MONOCYTES # (AUTO) 0.31 x10^3/uL (0.2-0.8); MONOCYTES % (AUTO) 8 % (2-9); NEUTROPHILS # (AUTO) 1.67 x10^3/uL (1.8-6.8); NEUTROPHILS % (AUTO) 43 % (42-75); PLATELET COUNT 224 x10^3/uL (130-400); RED BLOOD COUNT 3.58 x10^6/uL (4.38-5.82); RED CELL DISTRIBUTION WIDTH 16.9 % (9.4-14.8)
[2019-07-04 05:15] LABS: ALANINE AMINOTRANSFERASE 33 U/L (12-78); ALBUMIN 2.5 g/dL (3.4-5.0); ANION GAP 5 mmol/L (5-15); CALCIUM 8.4 mg/dL (8.5-10.1); CHLORIDE 111 mmol/L (98-107); CREATININE 0.55 mg/dL (0.7-1.3)
[2019-07-04 05:18] LABS: ALKALINE PHOSPHATASE 68 U/L (45-117); BILIRUBIN,TOTAL 0.3 mg/dL (0.2-1.0); CHOL/HDL RATIO 2.1; CHOLESTEROL, TOTAL 140 mg/dL (140-239); HDL CHOL % 47 % (26-37); HDL CHOLESTEROL (DIRECT) 66 mg/dL (40-60); LDL CHOLESTEROL,CALCULATED 62 mg/dL (54-169); LDL/HDL RATIO 0.9 (0.5-3.0); TOTAL PROTEIN 6.1 g/dL (6.4-8.2); TRIGLYCERIDES 60 mg/dL (50-200); VLDL CHOLESTEROL 12 mg/dL (0-25)
[2019-07-04] MEDS ORDERED: LEVOTHYROXINE 100 MCG TABLET PO SCH (06:00)
[2019-07-04] MEDS ORDERED: ASPIRIN 325 MG TABLET EC PO SCH (06:00)
[2019-07-04 08:11] VITALS: BP 102/61
[2019-07-04] MEDS: OXCARBAZEPINE 150 MG TABLET PO SCH (08:14)
[2019-07-04] MEDS: FAMOTIDINE 20 MG TABLET PO SCH (08:14)
[2019-07-04] MEDS ORDERED: ESCITALOPRAM 10MG TABLET PO SCH (09:00)
[2019-07-04] MEDS ORDERED: MAGNESIUM OXIDE 400 MG TABLET PO SCH (09:00)
[2019-07-04] MEDS ORDERED: MAGNESIUM SULFATE PMX 2GM/50ML 50 ML IV ONE (09:00)
[2019-07-04] MEDS ORDERED: REGADENOSON 0.4 MG/5 ML SYRINGE ONE (10:19)
[2019-07-04 14:18] VITALS: BP 105/52
[2019-07-04] MEDS: ENOXAPARIN 40 MG/0.4 ML SQ SCH (15:00)
[2019-07-04] MEDS ORDERED: MAGN400T50 PO (17:59)
== END 2019-07-04 19:00 | disposition home or self-care (01) ==
LOC: ED 11:51 → EDIP 13:33 → UNDOADMOB 13:33 → INTOOBSV 13:33 → SUATTDRO 13:35 → EDIP 13:52 → 5SO 20:44
PROVIDERS: ADMIT Internal Medicine; ATTEND Internal Medicine
DX: R07.9 Chest pain, unspecified (principal); D64.9 Anemia, unspecified; R00.1 Bradycardia, unspecified; I11.0 Hypertensive heart disease with heart failure; R41.89 Other symptoms and signs involving cognitive functions and awareness; I50.32 Chronic diastolic (congestive) heart failure; E78.5 Hyperlipidemia, unspecified; E03.9 Hypothyroidism, unspecified; J45.909 Unspecified asthma, uncomplicated; G40.909 Epilepsy, unspecified, not intractable, without status epilepticus; Z87.820 Personal history of traumatic brain injury; R53.81 Other malaise; Z79.899 Other long term (current) drug therapy
CPT/HCPCS: 36415; 70450; 71045; 78452; 80053; 80061; 80307; 83735; 83930; 84100; 84439; 84443; 84484; 85025; 93005; 93017; 96365; 96366; 96372; 96375; 99284; A9502; G0378; J1650; J2310; J2785; J3475; J7030; J7040

== ENCOUNTER 2019-08-09 05:25 | Inpatient (IN) | payer OTHER, MEDICAID ==
[~2019-08-09] VITALS: Ht 182.9 cm; Wt 107.3 kg
[~2019-08-09 05:25] MED LIST changes: +MAGN400T50 PO; +OXCA600T3 PO; -RANI-448 PO; +RANI-460 PO; +SIMV10TA18 PO; -SIMV10TA3 PO; +SIMV40TA20 PO; -SIMV40TA3 PO
[2019-08-09] MEDS ORDERED: APIX5TAB PO (05:52)
[2019-08-09] MEDS ORDERED: RANI150T4 PO (05:53)
[2019-08-09] MEDS ORDERED: SODIUM CHLORIDE FLUSH 10ML SYR IVF ONE (06:00)
--- NOTE | 2019-08-09 06:12 | NUR ---
Pt is drowsy but responds to verbal commands, sz precautions in place.
[2019-08-09 06:28] LABS: MICROSCOPIC NOT IND
[2019-08-09 06:29] LABS: BASOPHILS # (AUTO) 0.02 x10^3/uL (0-0.1); BASOPHILS % (AUTO) 0 % (0-1); EOSINOPHILS % (AUTO) 7 % (1-7); LYMPHOCYTES # (AUTO) 1.25 x10^3/uL (1-3.4); LYMPHOCYTES % (AUTO) 22 % (22-44); MD NO; MEAN CORPUSCULAR HEMOGLOBIN 26.5 pg (27.5-34.5); MEAN CORPUSCULAR HGB CONC 32.3 g/dL (33.2-36.2); MEAN CORPUSCULAR VOLUME 82.2 fL (81-97); MEAN PLATELET VOLUME 8.2 fL (7.4-10.4); MONOCYTES # (AUTO) 0.47 x10^3/uL (0.2-0.8); MONOCYTES % (AUTO) 8 % (2-9); NEUTROPHILS % (AUTO) 63 % (42-75); PLATELET COUNT 255 x10^3/uL (130-400); RED BLOOD COUNT 4.11 x10^6/uL (4.38-5.82); RED CELL DISTRIBUTION WIDTH 16.4 % (9.4-14.8)
[2019-08-09 06:31] LABS: CULTURE INDICATED? NO
[2019-08-09 06:42] LABS: ALANINE AMINOTRANSFERASE 41 U/L (12-78); ALBUMIN 2.8 g/dL (3.4-5.0); ANION GAP 3 mmol/L (5-15); CALCIUM 8.7 mg/dL (8.5-10.1); CHLORIDE 109 mmol/L (98-107); CREATININE 0.63 mg/dL (0.7-1.3)
[2019-08-09 06:46] LABS: ALKALINE PHOSPHATASE 77 U/L (45-117); BILIRUBIN,TOTAL 0.3 mg/dL (0.2-1.0); TROPONIN I < 0.015 ng/mL (0.000-0.045)
--- NOTE | 2019-08-09 06:46 | NUR ---
pt's significant other , debora on telephone, pt gave permission for this rn to discuss his care. she stated she can be reach at [phone] for questions
[2019-08-09] MEDS ORDERED: CARB200T PO (06:51)
--- NOTE | 2019-08-09 06:51 | NUR ---
report given to regina herrera
--- NOTE | 2019-08-09 06:58 | NUR ---
BEDSIDE REPORT RECEIVED FROM SAMIR RN, PT RESTING ON [facility]. VSS, NAD DISTRESS NOTED AT THIS TIME.
--- NOTE | 2019-08-09 08:00 | NUR ---
PT PLACED FOR RECHECK AT THIS TIME, PT IS RESTING COMFORTABLY, VSS, NAD
[2019-08-09] MEDS ORDERED: PROPARACAINE OPHTH 0.5%, 15ML ONE (09:35)
[2019-08-09] MEDS ORDERED: FLUORESCEIN OPHTHALMIC 1 MG STRIP ONE (09:35)
[2019-08-09] MEDS ORDERED: PROPARACAINE OPHTH 0.5%, 15ML EACHEYE ONE (10:00)
[2019-08-09] MEDS ORDERED: POLYTRIM OPHTH 10ML LEFTEYE ONE (10:00)
[2019-08-09] MEDS ORDERED: FLUORESCEIN OPHTHALMIC 1 MG STRIP EACHEYE ONE (10:00)
--- NOTE | 2019-08-09 10:10 | NUR ---
PT WITH C/O L EYE PAIN, ERPROVIDER IN TO EVAL, ADDITIONAL ORDERS RECIEVED. WILL MEDICATE WHEN MEDICATION ARRIVES PER MAR. DISCUSSED POC WITH ER PROVIDER, PT REMAINS DROWSY, PROVIDER WILL REASSES PRIOR TO DC
--- NOTE | 2019-08-09 11:51 | NUR ---
ATTEMPTED TO ROAD TEST PT, PT VERY UNSTEADY ON FEET WITH ONE PT CANE, ABLE TO SHUFFLE TO BR AND BACK WITH ONE PERSON ASSIST. WILL UPDATE ER PROVIDER.
--- NOTE | 2019-08-09 13:04 | NUR ---
THROUGHPUT: TRANSFER DECLINED BY [facility] & [facility]; PSC FORM FAXED TO [facility], EMAIL SENT TO [employer].
--- NOTE | 2019-08-09 13:22 | NUR ---
TASK RN: BEDSIDE REPORT RECEIVED FROM TERENCE WHITMORE. PT RESTING ON GURNEY. NADN. PT WAS GIVEN URINAL. NO OTHER NEEDS REQUESTED AT THIS TIME
[2019-08-09] MEDS ORDERED: SODIUM CHLORIDE FLUSH 10ML SYR IVF PRN (13:30)
--- NOTE | 2019-08-09 15:46 | NUR ---
AND FAMILY UPDATED ON POC, STILL AWAITING BED PLACEMENT. VSS, NAD NOTED
[2019-08-09] MEDS: SODIUM CHLORIDE 0.9% 1,000 ML IV SCH (16:52)
[2019-08-09] MEDS: POLYTRIM OPHTH 10ML EACHEYE SCH ×2 (16:53→20:34)
[2019-08-09] MEDS: ENOXAPARIN 40 MG/0.4 ML SQ SCH (17:56)
[2019-08-09 18:14] VITALS: BP 132/52
[2019-08-09 19:57] VITALS: BP 114/66
[2019-08-09] MEDS: SIMVASTATIN 40 MG TABLET PO SCH (20:32)
[2019-08-09] MEDS: QUETIAPINE 100MG TABLET PO SCH (20:32)
[2019-08-09] MEDS ORDERED: OXCARBAZEPINE 150 MG TABLET PO SCH (21:00)
[2019-08-10 00:42] VITALS: BP 112/67
[2019-08-10] MEDS: POLYTRIM OPHTH 10ML EACHEYE SCH ×4 (05:57→21:00)
[2019-08-10 06:06] LABS: ANION GAP 6 mmol/L (5-15); CALCIUM 8.5 mg/dL (8.5-10.1); CHLORIDE 109 mmol/L (98-107)
[2019-08-10 06:07] LABS: CREATININE 0.73 mg/dL (0.7-1.3)
[2019-08-10 06:16] LABS: BASOPHILS # (AUTO) 0.01 x10^3/uL (0-0.1); BASOPHILS % (AUTO) 0 % (0-1); EOSINOPHILS # (AUTO) 0.27 x10^3/uL (0-0.4); EOSINOPHILS % (AUTO) 5 % (1-7); LYMPHOCYTES # (AUTO) 1.42 x10^3/uL (1-3.4); LYMPHOCYTES % (AUTO) 24 % (22-44); MD NO; MEAN CORPUSCULAR HEMOGLOBIN 26.4 pg (27.5-34.5); MEAN CORPUSCULAR HGB CONC 32.1 g/dL (33.2-36.2); MEAN CORPUSCULAR VOLUME 82.3 fL (81-97); MEAN PLATELET VOLUME 8.5 fL (7.4-10.4); MONOCYTES # (AUTO) 0.29 x10^3/uL (0.2-0.8); MONOCYTES % (AUTO) 5 % (2-9); NEUTROPHILS # (AUTO) 3.93 x10^3/uL (1.8-6.8); NEUTROPHILS % (AUTO) 66 % (42-75); PLATELET COUNT 263 x10^3/uL (130-400); RED BLOOD COUNT 3.91 x10^6/uL (4.38-5.82); RED CELL DISTRIBUTION WIDTH 16.8 % (9.4-14.8)
[2019-08-10 07:23] VITALS: BP 113/67
[2019-08-10] MEDS: LEVOTHYROXINE 100 MCG TABLET PO SCH (08:45)
[2019-08-10] MEDS: ESCITALOPRAM 10MG TABLET PO SCH (08:46)
[2019-08-10] MEDS: SODIUM CHLORIDE 0.9% 1,000 ML IV SCH ×3 (08:46→16:54)
[2019-08-10] MEDS: FAMOTIDINE 20 MG TABLET PO SCH (08:46)
[2019-08-10] MEDS: OXCARBAZEPINE 300MG TABLET PO SCH ×2 (11:30→20:51)
[2019-08-10 13:03] VITALS: BP 120/68
[2019-08-10] MEDS: ENOXAPARIN 40 MG/0.4 ML SQ SCH (16:54)
[2019-08-10 18:41] VITALS: BP 120/56
[2019-08-10] MEDS: SIMVASTATIN 40 MG TABLET PO SCH (20:50)
[2019-08-10] MEDS: QUETIAPINE 100MG TABLET PO SCH (20:51)
[2019-08-11 01:03] VITALS: BP 110/55
[2019-08-11] MEDS: SODIUM CHLORIDE 0.9% 1,000 ML IV SCH ×2 (03:10→11:00)
[2019-08-11] MEDS: POLYTRIM OPHTH 10ML EACHEYE SCH ×4 (05:22→21:45)
[2019-08-11 06:29] VITALS: BP 110/63
[2019-08-11] MEDS: ESCITALOPRAM 10MG TABLET PO SCH (09:34)
[2019-08-11] MEDS: IRON SUCROSE COMPLEX 100MG/5ML IV SCH (09:34)
[2019-08-11] MEDS: LEVOTHYROXINE 100 MCG TABLET PO SCH (09:35)
[2019-08-11] MEDS: FAMOTIDINE 20 MG TABLET PO SCH (09:35)
[2019-08-11] MEDS: OXCARBAZEPINE 300MG TABLET PO SCH ×2 (09:35→21:46)
[2019-08-11] MEDS ORDERED: OXCA600T3 PO (10:03)
[2019-08-11] MEDS ORDERED: LEVO25TA4 PO (10:03)
[2019-08-11] MEDS ORDERED: ESCI10TA PO (10:03)
[2019-08-11] MEDS ORDERED: FERR325T16 PO (10:03)
[2019-08-11] MEDS ORDERED: QUET25TA7 PO (10:03)
[2019-08-11] MEDS ORDERED: POLY10DR3 EACHEYE (10:03)
[2019-08-11] MEDS: ACETAMINOPHEN 325 MG TABLET PO PRN (12:06)
[2019-08-11 13:08] VITALS: BP 113/64
[2019-08-11] MEDS: ENOXAPARIN 40 MG/0.4 ML SQ SCH (16:08)
[2019-08-11 18:30] VITALS: BP 111/65
[2019-08-11] MEDS: QUETIAPINE 100MG TABLET PO SCH (21:46)
[2019-08-11] MEDS: SIMVASTATIN 40 MG TABLET PO SCH (21:46)
[2019-08-12 00:16] VITALS: BP 124/64
[2019-08-12] MEDS: POLYTRIM OPHTH 10ML EACHEYE SCH ×2 (06:10→11:12)
[2019-08-12 06:47] VITALS: BP 99/59
[2019-08-12] MEDS: IRON SUCROSE COMPLEX 100MG/5ML IV SCH (09:00)
[2019-08-12] MEDS: ACETAMINOPHEN 325 MG TABLET PO PRN (09:13)
[2019-08-12] MEDS: FAMOTIDINE 20 MG TABLET PO SCH (09:14)
[2019-08-12] MEDS: ESCITALOPRAM 10MG TABLET PO SCH (09:14)
[2019-08-12] MEDS: OXCARBAZEPINE 300MG TABLET PO SCH (09:14)
[2019-08-12] MEDS: LEVOTHYROXINE 100 MCG TABLET PO SCH (09:14)
[2019-08-12 13:00] VITALS: BP 118/65
== END 2019-08-12 14:09 | disposition home or self-care (01) | DRG 101 ==
LOC: ED 07:50 → EDIP 13:08 → 3N 16:30 → DCLOUNGE 08-12 13:52
PROVIDERS: ADMIT Internal Medicine Infectious Disease; ATTEND Internal Medicine Infectious Disease
DX: G40.909 Epilepsy, unspecified, not intractable, without status epilepticus (principal); I50.32 Chronic diastolic (congestive) heart failure; E44.0 Moderate protein-calorie malnutrition; I11.0 Hypertensive heart disease with heart failure; E78.5 Hyperlipidemia, unspecified; E03.9 Hypothyroidism, unspecified; S05.02XA Injury of conjunctiva and corneal abrasion without foreign body, left eye, initial encounter; W18.39XA Other fall on same level, initial encounter; K21.9 Gastro-esophageal reflux disease without esophagitis; S93.401A Sprain of unspecified ligament of right ankle, initial encounter; H10.32 Unspecified acute conjunctivitis, left eye; D50.9 Iron deficiency anemia, unspecified; J06.9 Acute upper respiratory infection, unspecified; E11.51 Type 2 diabetes mellitus with diabetic peripheral angiopathy without gangrene; R32 Unspecified urinary incontinence; I25.2 Old myocardial infarction; Z68.32 Body mass index [BMI] 32.0-32.9, adult; Z88.0 Allergy status to penicillin; Z88.6 Allergy status to analgesic agent; Z88.1 Allergy status to other antibiotic agents; Z88.5 Allergy status to narcotic agent; Z91.018 Allergy to other foods; Z87.820 Personal history of traumatic brain injury; Y93.89 Activity, other specified; Y92.89 Other specified places as the place of occurrence of the external cause; Y99.8 Other external cause status; Z59.0 Homelessness; Z79.899 Other long term (current) drug therapy; Z82.49 Family history of ischemic heart disease and other diseases of the circulatory system; T42.1X6A Underdosing of iminostilbenes, initial encounter; Z91.138 Patient's unintentional underdosing of medication regimen for other reason
CPT/HCPCS: 36415; 70450; 72125; 80048; 80053; 81003; 82607; 82728; 83540; 83550; 83605; 84443; 84466; 84484; 85025; 93005; 95819; 99285; G0378; J1650; J1756; J7030

== ENCOUNTER 2019-08-13 04:33 | Emergency (ER) | payer OTHER, MEDICAID ==
[~2019-08-13] VITALS: Ht 182.9 cm; Wt 93.0 kg
[~2019-08-13 04:33] MED LIST changes: +APIX5TAB PO; +FERR325T16 PO; +POLY10DR3 EACHEYE; +RANI-448 PO; -RANI-460 PO; +RANI150T4 PO; -SIMV10TA18 PO; +SIMV10TA3 PO; -SIMV40TA20 PO; +SIMV40TA3 PO
--- NOTE | 2019-08-13 05:00 | NUR ---
Pt arrives awake and alert via [facility]. [facility] was called to [facility] for two witnessed seizures tonight. Pt reports hx of seizures. Pt reports he is incontinent of urine when he seizes. Pt in gown, on full monitors. EKG at bedside. At 0440, pt noted to have 15 sec seizure of upper extremity twitching. Pt did not loose airway control. VSS. Pt quickly returned to baseline. Seizure pads in place. Call light within reach.
--- NOTE | 2019-08-13 05:21 | NUR ---
Pt reports he took all his medications yesterday.
[2019-08-13] MEDS ORDERED: SODIUM CHLORIDE FLUSH 10ML SYR IVF ONE (05:30)
--- NOTE | 2019-08-13 05:34 | NUR ---
Lab at bedside for draw.
[2019-08-13 05:50] LABS: ALBUMIN 2.7 g/dL (3.4-5.0); ANION GAP 3 mmol/L (5-15); CALCIUM 8.4 mg/dL (8.5-10.1); CHLORIDE 104 mmol/L (98-107); CREATININE 0.63 mg/dL (0.7-1.3)
[2019-08-13 06:12] LABS: MD YES; MEAN CORPUSCULAR HEMOGLOBIN 26.4 pg (27.5-34.5); MEAN CORPUSCULAR HGB CONC 32.2 g/dL (33.2-36.2); MEAN CORPUSCULAR VOLUME 81.9 fL (81-97); MEAN PLATELET VOLUME 8.2 fL (7.4-10.4); PLATELET COUNT 224 x10^3/uL (130-400); RED CELL DISTRIBUTION WIDTH 16.5 % (9.4-14.8)
[2019-08-13 06:14] LABS: EOS#(MANUAL) 0.12 x10^3/uL (0.0-0.4); EOS% (MANUAL) 1 % (1-7); LYMPH#(MANUAL) 2.32 x10^3/uL (1-3.4); LYMPHS% (MANUAL) 20 % (22-44); MONOS#(MANUAL) 0.23 x10^3/uL (0.3-2.7); MONOS% (MANUAL) 2 % (2-9); SEG#(MANUAL) 8.93 x10^3/uL (1.8-6.8); SEGS% (MANUAL) 77 % (42-75)
[2019-08-13 06:15] LABS: <PLATELET ESTIMATE> ADEQUATE; <PLT MORPHOLOGY> NORMAL PLT MORPH; ANISOCYTOSIS 1+
--- NOTE | 2019-08-13 06:15 | NUR ---
Pt resting on [place]. NAD. Pt remains on all monitors.
[2019-08-13 06:38] VITALS: BP 147/57
--- NOTE | 2019-08-13 06:39 | NUR ---
Pt alert and oriented. No further seizure activity noted. VS retaken. PIV removed. Clean pants provided for pt.
--- NOTE | 2019-08-13 06:48 | NUR ---
Pt d/c'd to self care. Pt alert, oriented and ambulatory at time of d/c. Pt given bus pass. Pt educated on follow-up, home care, medications and S/Sx to return. Pt AIDA.
== END 2019-08-13 06:54 | disposition home or self-care (01) ==
LOC: ED 05:12
DX: G40.409 Other generalized epilepsy and epileptic syndromes, not intractable, without status epilepticus (principal); Z59.0 Homelessness; I10 Essential (primary) hypertension; E78.5 Hyperlipidemia, unspecified; I25.2 Old myocardial infarction
CPT/HCPCS: 36415; 80048; 82040; 85025; 93005; 99283

== ENCOUNTER 2019-08-18 11:13 | Emergency (ER) | payer OTHER, MEDICAID ==
[~2019-08-18] VITALS: Ht 182.9 cm; Wt 93.0 kg
[2019-08-18] MEDS ORDERED: PLEASE ENTER HEIGHT AND WEIGHT MC SCH (12:00)
--- NOTE | 2019-08-18 12:25 | NUR ---
report received from TERENCE Shipman. upon first contact, pt was sleeping, resps even and unlabored. pt awakens to voice. pt medicated per emar, tolerated well. pt denies etoh or drug use today, states he did not sleep last night because "it was too loud outside." all monitors in place, pt is nsr on cardiac rehabilitation program director with no ectopy. pt to be dc'd shortly.
[2019-08-18 13:34] VITALS: BP 114/68
--- NOTE | 2019-08-18 13:35 | NUR ---
dc order received from SEGUN Stevenson. pt a&ox4, resps even and unlabored, neuro intact. nsr on hall monitor. 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 pt given dc instructions and script, piv dc'd with tip intact. pt amb to dc desk with steady gait, using own cane. pt given bus pass.
== END 2019-08-18 13:36 | disposition home or self-care (01) ==
LOC: ED 12:01
DX: J44.1 Chronic obstructive pulmonary disease with (acute) exacerbation (principal); K21.9 Gastro-esophageal reflux disease without esophagitis; I10 Essential (primary) hypertension; E78.5 Hyperlipidemia, unspecified; E03.9 Hypothyroidism, unspecified; I25.2 Old myocardial infarction; Z88.6 Allergy status to analgesic agent; Z88.0 Allergy status to penicillin; Z88.5 Allergy status to narcotic agent; Z90.89 Acquired absence of other organs
CPT/HCPCS: 71046; 93005; 99283; J7512

== ENCOUNTER 2019-08-24 11:38 | Emergency (ER) | payer OTHER, MEDICAID ==
[~2019-08-24] VITALS: Ht 185.4 cm; Wt 105.1 kg
[~2019-08-24 11:38] MED LIST changes: -RANI-448 PO; +RANI-460 PO; +SIMV10TA18 PO; -SIMV10TA3 PO; +SIMV40TA20 PO; -SIMV40TA3 PO
[2019-08-24] MEDS ORDERED: METOCLOPRAMIDE 10MG TABLET PO ONE (12:00)
[2019-08-24] MEDS ORDERED: KETOROLAC 30 MG/1 ML IM ONE (12:00)
--- NOTE | 2019-08-24 12:09 | NUR ---
BIB EMS from nursing home with C/O: "seizure with epilepsy". EMS reports no post ictyl state observed. Pt c/o migraine/cough/nausea. PER EMS, "119/75 BP 62 97% RA, BG 150". pt's aox4. resps even and unlabored. [place]. bp/spo2 monitors in place. call light within reach. edmd at bedside to evaluate at this time. seizure pads placed.
[2019-08-24] MEDS ORDERED: METOCLOPRAMIDE 10MG TABLET ONE (12:34)
[2019-08-24] MEDS ORDERED: KETOROLAC 60 MG/2 ML ONE (12:34)
[2019-08-24 13:59] VITALS: BP 122/62
--- NOTE | 2019-08-24 13:59 | NUR ---
pt sleeping in [facility]. resps even and unlabored. bp/spo2 monitors in place. call light within reach.
--- NOTE | 2019-08-24 14:32 | NUR ---
Patient given discharge instructions and they have confirmed that they understand the instructions. Patient ambulatory with steady gait.
== END 2019-08-24 14:33 | disposition home or self-care (01) ==
LOC: ED 12:48
DX: R51 Headache (principal); R19.7 Diarrhea, unspecified; K21.9 Gastro-esophageal reflux disease without esophagitis; J44.9 Chronic obstructive pulmonary disease, unspecified; E03.9 Hypothyroidism, unspecified; I11.0 Hypertensive heart disease with heart failure; I50.9 Heart failure, unspecified; E78.5 Hyperlipidemia, unspecified; G40.909 Epilepsy, unspecified, not intractable, without status epilepticus; Z88.0 Allergy status to penicillin; Z88.8 Allergy status to other drugs, medicaments and biological substances; Z90.89 Acquired absence of other organs
CPT/HCPCS: 96372; 99283; J1885

== ENCOUNTER 2019-08-25 18:02 | Emergency (ER) | payer OTHER, MEDICAID ==
[~2019-08-25] VITALS: Ht 182.9 cm; Wt 93.0 kg
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
--- NOTE | 2019-08-25 18:15 | NUR ---
[facility] AT BEDSIDE TAKING PT STATEMENT NOW.
--- NOTE | 2019-08-25 18:21 | NUR ---
AT BEDSIDE FOR EVAL
[2019-08-25] MEDS ORDERED: PROPOFOL 10 MG/ML, 20ML IVPush ONE (19:30)
[2019-08-25] MEDS ORDERED: PROPOFOL 10 MG/ML, 20ML ONE (19:41)
--- NOTE | 2019-08-25 19:42 | NUR ---
PT SET UP FOR CONSCIOUS SEDATION, ALL SAFETIES IN PLACE. AWAITING MD AT THIS TIME
--- NOTE | 2019-08-25 20:09 | NUR ---
PROCEDURE COMPLETE. PT CURRENTLY RECOVERING. SPLINT IN PLACE.
[2019-08-25 21:27] VITALS: BP 140/79
--- NOTE | 2019-08-25 21:41 | NUR ---
SLING APPLIED TO PT PRIOR TO DC
== END 2019-08-25 21:43 | disposition home or self-care (01) ==
LOC: ED 21:30
DX: S52.572A Other intraarticular fracture of lower end of left radius, initial encounter for closed fracture (principal); I11.0 Hypertensive heart disease with heart failure; I50.9 Heart failure, unspecified; I25.2 Old myocardial infarction; E78.5 Hyperlipidemia, unspecified; E03.9 Hypothyroidism, unspecified; F17.200 Nicotine dependence, unspecified, uncomplicated; G40.909 Epilepsy, unspecified, not intractable, without status epilepticus; Z90.89 Acquired absence of other organs; W18.30XA Fall on same level, unspecified, initial encounter; Y93.89 Activity, other specified; Y92.410 Unspecified street and highway as the place of occurrence of the external cause; Y99.8 Other external cause status
CPT/HCPCS: 25605; 99152; 99285

== ENCOUNTER 2019-12-24 22:20 | Emergency (ER) | payer OTHER, MEDICAID ==
[~2019-12-24] VITALS: Ht 182.9 cm; Wt 95.0 kg
[~2019-12-24 22:20] MED LIST changes: +HYDR-3246 PO; -HYDR-36 PO
--- NOTE | 2019-12-24 22:35 | NUR ---
Patient BIB [facility] c/o seizure, syncopal episodes and "being shocked by his pacemaker." Per EMS, no syncope, seizure activity, or pacemaker activity noted. They stated he would stop answering questions by EMS then perk up and ask what happened. Patient states he has not been able to sleep for 10 days. Patient c/o pain all over. Patient is in NAD. Respirations even and unlabored.
[2019-12-24 23:28] LABS: BASOPHILS # (AUTO) 0.07 x10^3/uL (0-0.1); BASOPHILS % (AUTO) 1 % (0-1); EOSINOPHILS # (AUTO) 0.34 x10^3/uL (0-0.4); EOSINOPHILS % (AUTO) 4 % (1-7); LYMPHOCYTES # (AUTO) 2.09 x10^3/uL (1-3.4); LYMPHOCYTES % (AUTO) 26 % (22-44); MD NO; MEAN CORPUSCULAR HEMOGLOBIN 28.5 pg (27.5-34.5); MEAN CORPUSCULAR HGB CONC 32.7 g/dL (33.2-36.2); MEAN CORPUSCULAR VOLUME 87.2 fL (81-97); MEAN PLATELET VOLUME 7.8 fL (7.4-10.4); MONOCYTES # (AUTO) 0.79 x10^3/uL (0.2-0.8); MONOCYTES % (AUTO) 10 % (2-9); NEUTROPHILS # (AUTO) 4.73 x10^3/uL (1.8-6.8); NEUTROPHILS % (AUTO) 59 % (42-75); PLATELET COUNT 275 x10^3/uL (130-400); RED BLOOD COUNT 4.43 x10^6/uL (4.38-5.82); RED CELL DISTRIBUTION WIDTH 16.8 % (9.4-14.8)
[2019-12-24 23:39] LABS: ALBUMIN 3.5 g/dL (3.4-5.0); ANION GAP 5 mmol/L (5-15); CHLORIDE 108 mmol/L (98-107); CREATININE 0.96 mg/dL (0.7-1.3)
[2019-12-24 23:43] LABS: TROPONIN I < 0.015 ng/mL (0.000-0.045)
[2019-12-25 00:09] VITALS: BP 115/55
--- NOTE | 2019-12-25 00:58 | NUR ---
Discharge instructions given. All questions and concerns addressed. Patient ambulatory with a steady gait. Belongings with patient.
== END 2019-12-25 01:10 | disposition home or self-care (01) ==
LOC: ED 12-25 01:00
DX: R07.2 Precordial pain (principal); R00.2 Palpitations; R42 Dizziness and giddiness; R53.1 Weakness; R94.31 Abnormal electrocardiogram [ECG] [EKG]; I25.10 Atherosclerotic heart disease of native coronary artery without angina pectoris; E03.9 Hypothyroidism, unspecified; I11.0 Hypertensive heart disease with heart failure; I50.9 Heart failure, unspecified; K21.9 Gastro-esophageal reflux disease without esophagitis; J44.9 Chronic obstructive pulmonary disease, unspecified; E11.9 Type 2 diabetes mellitus without complications; I25.2 Old myocardial infarction; Z86.73 Personal history of transient ischemic attack (TIA), and cerebral infarction without residual deficits
CPT/HCPCS: 36415; 71045; 80048; 82040; 84484; 85025; 93005; 99283